=== PATIENT | male | born 1955 | race Caucasian/White ===

== ENCOUNTER 2016-12-15 09:06 | Inpatient (IN) | payer MEDICAID, OTHER ==
[~2016-12-15] VITALS: Ht 172.7 cm; Wt 78.9 kg
[2016-12-15] MEDS ORDERED: ONDANSETRON HCL/PF 4 MG/2 ML VIAL ONE (09:28)
[2016-12-15] MEDS ORDERED: ONDANSETRON HCL/PF 4 MG/2 ML VIAL IVP ONE (09:30)
[2016-12-15] MEDS ORDERED: ACETAMINOPHEN ES 500 MG TABLET ONE (09:32)
[2016-12-15 09:51] LABS: BASOPHILS % (AUTO) 0.9 % (0.0-2.0); DIFF TOTAL % 100 %; EOSINOPHILS # (AUTO) 0.1 /CMM (0.0-0.7); EOSINOPHILS % (AUTO) 1.6 % (0.0-6.0); HEMATOCRIT 44 % (39-51); HEMOGLOBIN 14.8 g/dL (13.5-17.5); LYMPHOCYTES # (AUTO) 0.8 /CMM (0.8-4.8); LYMPHOCYTES % (AUTO) 24.8 % (20.0-44.0); MEAN CORPUSCULAR HEMOGLOBIN 34 PG (26.0-33.0); MEAN CORPUSCULAR HGB CONC 33 g/dl (31.0-36.0); MEAN CORPUSCULAR VOLUME 103 fL (80-96); MONOCYTES # (AUTO) 0.4 /CMM (0.1-1.30); MONOCYTES % (AUTO) 10.9 % (2.0-12.0); NEUTROPHILS % (AUTO) 61.8 % (43.0-81.0); PLATELET COUNT (AUTO) 79 /CMM (150-450); RED BLOOD CELL COUNT(AUTO) 4.29 MIL/uL (4.5-6.0); WHITE BLOOD COUNT (AUTO) 3.3 K/uL (4.3-11.0)
[2016-12-15] MEDS ORDERED: ACETAMINOPHEN ES 500 MG TABLET PO ONE (10:00)
[2016-12-15 10:03] LABS: ANION GAP 17 (5-14); CALCIUM, SERUM 9.7 mg/dL (8.5-10.1); CARBON DIOXIDE 26 mmol/L (21-32); CHLORIDE 96 mmol/L (98-107); CREATININE 0.7 mg/dL (0.6-1.3); GFR 114 mL/min (>60); GLUCOSE 97 mg/dL (74-106); POTASSIUM 3.8 mmol/L (3.5-5.1); SODIUM SERUM 135 mmol/L (136-145); UREA NITROGEN, BLOOD 18 mg/dL (7-18)
[2016-12-15 10:09] LABS: ALANINE AMINOTRANSFERASE 50 U/L (12-78); ALBUMIN 3.9 g/dL (3.4-5.0); ASPARTATE AMINOTRANSFERASE 83 U/L (15-37); BILIRUBIN,DIRECT 0.4 mg/dL (0.0-0.2); BILIRUBIN,TOTAL 1.5 mg/dL (0.2-1.0); INDIRECT BILIRUBIN 1.1 mg/dL (0.0-1.1); TOTAL PROTEIN, SERUM 7.9 g/dL (6.4-8.2)
[2016-12-15 10:11] LABS: TROPONIN I < 0.017 ng/mL (0.00-0.056)
[2016-12-15 10:15] LABS: LACTIC ACID 1.1 mmol/L (0.4-2.0)
[2016-12-15 10:21] LABS: PROTHROMBIN TIME 10.5 SECS (9.5-12.7)
[2016-12-15 10:22] LABS: BAND % (MANUAL) 3 % (0.0-5.0); EOSINOPHILS % (MANUAL) 2 % (0-4); LYMPHOCYTES % (MANUAL) 26 % (16-48); PLATELET ESTIMATE DECREASED
[2016-12-15] MEDS ORDERED: ENOXAPARIN SODIUM 40 MG/0.4 ML DISP.SYRIN SQ SCH (11:00)
[2016-12-15] MEDS ORDERED: MAG HYDROX/AL HYDROX/SIMETH 30 ML UDC PO PRN (11:00)
[2016-12-15] MEDS ORDERED: ACETAMINOPHEN 325 MG TABLET PO PRN (11:00)
[2016-12-15] MEDS ORDERED: ASPIRIN 325 MG TABLET PO ONE (11:00)
[2016-12-15 11:27] LABS: THYROID STIMULATING HORMONE 1.444 uIU/mL (0.358-3.74)
[2016-12-15 12:15] VITALS: BP 125/72
[2016-12-15 16:00] VITALS: BP 122/74
[2016-12-15 16:28] LABS: CANNABINOID, URINE NEGATIVE (NEGATIVE); PHENCYCLIDINE SCREEN,URINE NEGATIVE (NEGATIVE)
[2016-12-15 16:36] LABS: KETONES,URINE 1+ (NEGATIVE); LEUKOCYTE ESTERASE ,URINE NEGATIVE (NEGATIVE)
[2016-12-15 16:45] LABS: ADD UA MICROSCOPIC YES
[2016-12-15 17:06] LABS: ADD URINE CULTURE YES; MUCUS,URINE Moderate /LPF (None Seen); RBC,URINE NONE SEEN /HPF (0-2); WBC,URINE NONE SEEN /HPF (0-3)
[2016-12-15] MEDS ORDERED: TEMAZEPAM 15 MG CAPSULE PO PRN (19:30)
[2016-12-15] MEDS: HYDROCODONE/APAP 5/325MG 1 EACH TABLET PO PRN (19:49)
[2016-12-15 20:11] VITALS: BP 128/69
[2016-12-16] MEDS: HYDROCODONE/APAP 5/325MG 1 EACH TABLET PO PRN ×4 (00:06→19:15)
[2016-12-16 00:16] VITALS: BP 129/73
[2016-12-16 07:08] LABS: ANION GAP 14 (5-14); CALCIUM, SERUM 9.2 mg/dL (8.5-10.1); CARBON DIOXIDE 26 mmol/L (21-32); CHLORIDE 100 mmol/L (98-107); CREATININE 0.7 mg/dL (0.6-1.3); GFR 114 mL/min (>60); GLUCOSE 110 mg/dL (74-106); POTASSIUM 3.9 mmol/L (3.5-5.1); SODIUM SERUM 136 mmol/L (136-145); UREA NITROGEN, BLOOD 19 mg/dL (7-18)
[2016-12-16 07:10] LABS: CHOLESTEROL 182 mg/dL (<200); HDL CHOLESTEROL 108 mg/dL (40-60); LDL 56 mg/dL (0-99); TRIGLYCERIDES 68 mg/dL (30-150)
[2016-12-16 07:12] LABS: INR 0.98 (0.87-1.13); PROTHROMBIN TIME 10.6 SECS (9.5-12.7)
[2016-12-16 07:13] LABS: TROPONIN I < 0.017 ng/mL (0.00-0.056)
[2016-12-16 08:00] VITALS: BP 129/63
[2016-12-16 08:39] LABS: BASOPHILS % (AUTO) 1.1 % (0.0-2.0); EOSINOPHILS % (AUTO) 3.6 % (0.0-6.0); HEMATOCRIT 39 % (39-51); HEMOGLOBIN 13.6 g/dL (13.5-17.5); LYMPHOCYTES % (AUTO) 49.2 % (20.0-44.0); MEAN CORPUSCULAR HEMOGLOBIN 39 PG (26.0-33.0); MEAN CORPUSCULAR HGB CONC 35 g/dl (31.0-36.0); MEAN CORPUSCULAR VOLUME 110 fL (80-96); MONOCYTES % (AUTO) 10.3 % (2.0-12.0); NEUTROPHILS % (AUTO) 35.8 % (43.0-81.0); PLATELET COUNT (AUTO) 69 /CMM (150-450); RED BLOOD CELL COUNT(AUTO) 3.52 MIL/uL (4.5-6.0)
[2016-12-16 08:40] LABS: DIFF TOTAL % 100 %; EOSINOPHILS # (AUTO) 0.1 /CMM (0.0-0.7); LYMPHOCYTES # (AUTO) 1.5 /CMM (0.8-4.8); MONOCYTES # (AUTO) 0.3 /CMM (0.1-1.30); NEUTROPHILS # (AUTO) 1.1 /CMM (1.8-8.9)
[2016-12-16] MEDS: DOCUSATE SODIUM 100 MG CAPSULE PO SCH (10:13)
[2016-12-16] MEDS: ASPIRIN EC 325 MG TABLET.DR PO SCH (10:13)
[2016-12-16 12:00] VITALS: BP 115/70
[2016-12-16 12:45] LABS: EOSINOPHILS % (MANUAL) 5 % (0-4); LYMPHOCYTES % (MANUAL) 52 % (16-48); PLATELET ESTIMATE DECREASED
[2016-12-16 16:00] VITALS: BP 108/71
[2016-12-16 20:24] VITALS: BP 99/63
[2016-12-17] MEDS: HYDROCODONE/APAP 5/325MG 1 EACH TABLET PO PRN ×2 (00:33→08:37)
[2016-12-17 08:00] VITALS: BP 102/68
[2016-12-17] MEDS: ASPIRIN EC 325 MG TABLET.DR PO SCH (08:37)
[2016-12-17] MEDS: DOCUSATE SODIUM 100 MG CAPSULE PO SCH (08:37)
== END 2016-12-17 13:45 | disposition home health service (06) | DRG 48 ==
LOC: ER 09:08 → TELE 11:39 → MED 12-16 11:37
PROVIDERS: ADMIT Internal Medicine; ATTEND Internal Medicine
DX: G62.9 Polyneuropathy, unspecified (principal); F03.90 Unspecified dementia, unspecified severity, without behavioral disturbance, psychotic disturbance, mood disturbance, and anxiety; E87.1 Hypo-osmolality and hyponatremia; E86.1 Hypovolemia; I69.351 Hemiplegia and hemiparesis following cerebral infarction affecting right dominant side; F41.9 Anxiety disorder, unspecified; I25.10 Atherosclerotic heart disease of native coronary artery without angina pectoris; I25.2 Old myocardial infarction; D64.9 Anemia, unspecified; F17.210 Nicotine dependence, cigarettes, uncomplicated; I10 Essential (primary) hypertension
CPT/HCPCS: 36415; 70450-TC; 70551-TC; 71010-TC; 72131-TC; 80048-TC; 80061-TC; 80076-TC; 80305; 81000-TC; 82140-TC; 83605-TC; 83880; 84443-TC; 84484-TC; 85025-TC; 85652-TC; 85730-TC; 87081-TC; 87086-TC; 92611-TC; 93307-TC; 97001-TC; 97003-TC; 97116-TC; 97530-TC; A4606; J2405; Z7610

== ENCOUNTER 2017-01-27 18:40 | Emergency (ER) | payer OTHER ==
[~2017-01-27] VITALS: Ht 182.9 cm; Wt 77.1 kg
[2017-01-27 19:53] LABS: DIFF TOTAL % 100 %; EOSINOPHILS # (AUTO) 0.1 /CMM (0.0-0.7); EOSINOPHILS % (AUTO) 3.2 % (0.0-6.0); HEMATOCRIT 41 % (39-51); HEMOGLOBIN 14.4 g/dL (13.5-17.5); LYMPHOCYTES # (AUTO) 1.9 /CMM (0.8-4.8); LYMPHOCYTES % (AUTO) 50.6 % (20.0-44.0); MEAN CORPUSCULAR HEMOGLOBIN 37 PG (26.0-33.0); MEAN CORPUSCULAR HGB CONC 35 g/dl (31.0-36.0); MEAN CORPUSCULAR VOLUME 105 fL (80-96); MONOCYTES # (AUTO) 0.3 /CMM (0.1-1.30); MONOCYTES % (AUTO) 9.4 % (2.0-12.0); NEUTROPHILS # (AUTO) 1.3 /CMM (1.8-8.9); NEUTROPHILS % (AUTO) 35.8 % (43.0-81.0); PLATELET COUNT (AUTO) 58 /CMM (150-450); RED BLOOD CELL COUNT(AUTO) 3.93 MIL/uL (4.5-6.0); WHITE BLOOD COUNT (AUTO) 3.6 K/uL (4.3-11.0)
[2017-01-27] MEDS ORDERED: BACLOFEN (10 MG) 10 MG TABLET ONE (19:54)
[2017-01-27 19:56] LABS: CREATININE 0.8 mg/dL (0.6-1.3)
[2017-01-27 19:59] LABS: INR 0.9 (0.87-1.13); PROTHROMBIN TIME 9.4 SECS (9.5-12.7)
[2017-01-27] MEDS ORDERED: BACLOFEN (10 MG) 10 MG TABLET PO ONE (20:00)
[2017-01-27 20:01] LABS: ALBUMIN 3.9 g/dL (3.4-5.0); BILIRUBIN,DIRECT 0.3 mg/dL (0.0-0.2); BILIRUBIN,TOTAL 0.6 mg/dL (0.2-1.0); CALCIUM, SERUM 8.5 mg/dL (8.5-10.1); INDIRECT BILIRUBIN 0.3 mg/dL (0.0-1.1); TOTAL PROTEIN, SERUM 7.8 g/dL (6.4-8.2)
[2017-01-27 20:03] LABS: CANNABINOID, URINE NEGATIVE (NEGATIVE); PHENCYCLIDINE SCREEN,URINE NEGATIVE (NEGATIVE)
[2017-01-27 20:56] LABS: ANISOCYTOSIS 1+; EOSINOPHILS % (MANUAL) 2 % (0-4); LYMPHOCYTES % (MANUAL) 52 % (16-48); PLATELET ESTIMATE DECREASED
[2017-01-27 21:07] VITALS: BP 124/61
== END 2017-01-27 21:08 | disposition home or self-care (01) ==
LOC: ER 18:45
DX: R06.6 Hiccough (principal); F10.10 Alcohol abuse, uncomplicated; I25.2 Old myocardial infarction; I25.10 Atherosclerotic heart disease of native coronary artery without angina pectoris; F17.210 Nicotine dependence, cigarettes, uncomplicated; R79.1 Abnormal coagulation profile; Z86.73 Personal history of transient ischemic attack (TIA), and cerebral infarction without residual deficits
CPT/HCPCS: 36415; 71010; 80048; 80076; 80305; 83690; 85025; 85730; 99285; A4606; G0480; Z7610

== ENCOUNTER 2017-02-03 22:31 | Inpatient (IN) | payer OTHER ==
[~2017-02-03] VITALS: Ht 182.9 cm; Wt 77.1 kg
[2017-02-03] MEDS ORDERED: IV NS 0.9% 1,000 ML BAG IV ONE (23:00)
[2017-02-03] MEDS ORDERED: ONDANSETRON HCL/PF 4 MG/2 ML VIAL IVP ONE (23:00)
[2017-02-03] MEDS ORDERED: IV NS 0.9% 1,000 ML ONE (23:06)
[2017-02-03] MEDS ORDERED: ONDANSETRON HCL/PF 4 MG/2 ML VIAL ONE (23:06)
[2017-02-03 23:12] LABS: BASOPHILS % (AUTO) 0.2 % (0.0-2.0); EOSINOPHILS # (AUTO) 0.1 /CMM (0.0-0.7); EOSINOPHILS % (AUTO) 1.3 % (0.0-6.0); HEMATOCRIT 40 % (39-51); HEMOGLOBIN 13.9 g/dL (13.5-17.5); LYMPHOCYTES % (AUTO) 21.9 % (20.0-44.0); MEAN CORPUSCULAR HEMOGLOBIN 35 PG (26.0-33.0); MEAN CORPUSCULAR HGB CONC 35 g/dl (31.0-36.0); MEAN CORPUSCULAR VOLUME 100 fL (80-96); MONOCYTES # (AUTO) 0.5 /CMM (0.1-1.30); MONOCYTES % (AUTO) 10.8 % (2.0-12.0); NEUTROPHILS # (AUTO) 2.9 /CMM (1.8-8.9); NEUTROPHILS % (AUTO) 65.8 % (43.0-81.0); PLATELET COUNT (AUTO) 60 /CMM (150-450); RDW COEFFICIENT OF VARIATION 13.8 (11.5-15.0); RED BLOOD CELL COUNT(AUTO) 3.96 MIL/uL (4.5-6.0); WHITE BLOOD COUNT (AUTO) 4.4 K/uL (4.3-11.0)
[2017-02-03 23:24] LABS: CALCIUM, SERUM 9.3 mg/dL (8.5-10.1); CREATININE 0.8 mg/dL (0.6-1.3); POTASSIUM 4.2 mmol/L (3.5-5.1)
[2017-02-03 23:30] LABS: ALBUMIN 3.9 g/dL (3.4-5.0); BILIRUBIN,DIRECT 0.6 mg/dL (0.0-0.2); BILIRUBIN,TOTAL 1.7 mg/dL (0.2-1.0); TOTAL PROTEIN, SERUM 7.7 g/dL (6.4-8.2)
[2017-02-03 23:32] LABS: LACTIC ACID 1.2 mmol/L (0.4-2.0); TROPONIN I 0.045 ng/mL (0.00-0.056)
[2017-02-03 23:35] LABS: INR 0.95 (0.87-1.13); PROTHROMBIN TIME 10.1 SECS (9.5-12.7)
[2017-02-03] MEDS ORDERED: MORPHINE SULFATE INJ 2 MG/ML DISP.SYRIN ONE (23:46)
[2017-02-03 23:49] LABS: APPEARANCE,URINE CLEAR (CLEAR); BILIRUBIN,URINE 2+ (NEGATIVE); BLOOD, URINE TRACE-INTA Ery/uL (NEGATIVE); COLOR,URINE DARK YELLOW (YELLOW); KETONES,URINE 3+ (NEGATIVE); LEUKOCYTE ESTERASE ,URINE NEGATIVE (NEGATIVE); NITRITE, URINE NEGATIVE (NEGATIVE); PROTEIN,URINE 1+ mg/dl (NEGATIVE); UGLUCOSE NEGATIVE (NEGATIVE)
[2017-02-03 23:56] LABS: ADD URINE CULTURE NO; BACTERIA,URINE None seen /HPF (None Seen); RBC,URINE 0-2 /HPF (0-2); WBC,URINE 0-2 /HPF (0-3)
[2017-02-03 23:57] LABS: HYALINE CASTS, URINE Rare /LPF (None Seen); MUCUS,URINE Rare /LPF (None Seen); SQUAMOUS EPITHELIAL CELL,UR Rare /HPF (None Seen)
[2017-02-04] VITALS (7 sets, daily range): BP systolic 111–145; BP diastolic 69–83
[2017-02-04] MEDS ORDERED: MORPHINE SULFATE INJ 2 MG/ML DISP.SYRIN IV PRN
[2017-02-04] MEDS ORDERED: FOLI1TAB16 PO (00:21)
[2017-02-04] MEDS ORDERED: ASPI-605 PO (00:21)
[2017-02-04] MEDS ORDERED: MULT1CAP34 PO (00:21)
[2017-02-04 00:28] LABS: BAND % (MANUAL) 1 % (0.0-5.0); LYMPHOCYTES % (MANUAL) 28 % (16-48); MONOCYTES % (MANUAL) 7 % (0-11.0); NEUTROPHILS % (MANUAL) 64 (42-76); PLATELET ESTIMATE DECREASED
[2017-02-04] MEDS ORDERED: MECLIZINE HCL 25 MG TABLET PO SCH (01:30)
[2017-02-04] MEDS ORDERED: ENOXAPARIN SODIUM 40 MG/0.4 ML DISP.SYRIN SQ ONE (01:53)
[2017-02-04] MEDS ORDERED: IV SET PRIMARY PUMP SET 1 EA INFUS.SET MC ONE (01:59)
[2017-02-04] MEDS ORDERED: IV NS 0.9% 1,000 ML ONE (01:59)
[2017-02-04] MEDS ORDERED: ONDANSETRON HCL/PF 4 MG/2 ML VIAL IVP PRN (02:00)
[2017-02-04] MEDS ORDERED: MAG HYDROX/AL HYDROX/SIMETH 30 ML UDC PO PRN (02:00)
[2017-02-04] MEDS ORDERED: ENOXAPARIN SODIUM 40 MG/0.4 ML DISP.SYRIN SQ SCH ×2 (02:00→21:00)
[2017-02-04] MEDS ORDERED: ZOLPIDEM TARTRATE 5 MG TABLET PO PRN (02:00)
[2017-02-04] MEDS ORDERED: HYDROCODONE/APAP 5/325MG 1 EACH TABLET PO PRN (02:00)
[2017-02-04] MEDS ORDERED: MAGNESIUM HYDROXIDE 30 ML UDC PO PRN (02:00)
[2017-02-04] MEDS ORDERED: Z GUARD REMEDY 2 OZ OINT TP PRN (02:00)
[2017-02-04] MEDS ORDERED: ACETAMINOPHEN 325 MG TABLET PO PRN (02:00)
[2017-02-04] MEDS: IV NS 0.9% 1,000 ML IV PRN (02:05)
[2017-02-04] MEDS ORDERED: HYDROCODONE/APAP 5/325MG 1 EACH TABLET ONE (03:55)
[2017-02-04] MEDS: MULTIVITAMINS,THERAPEUTIC 1 UDTAB TABLET PO SCH (08:17)
[2017-02-04] MEDS: FOLIC ACID 1 MG TABLET PO SCH (08:17)
[2017-02-04] MEDS: PANTOPRAZOLE 40 MG TABLET.DR PO SCH (08:17)
[2017-02-04] MEDS ORDERED: ASPIRIN EC 81 MG TABLET.DR PO SCH (09:00)
[2017-02-04 11:42] LABS: CALCIUM, SERUM 8.4 mg/dL (8.5-10.1); CREATININE 0.8 mg/dL (0.6-1.3); POTASSIUM 4.1 mmol/L (3.5-5.1)
[2017-02-04 11:48] LABS: ALBUMIN 3.2 g/dL (3.4-5.0); BILIRUBIN,DIRECT 0.4 mg/dL (0.0-0.2); TOTAL PROTEIN, SERUM 6.6 g/dL (6.4-8.2)
[2017-02-04 11:50] LABS: LACTIC ACID 0.9 mmol/L (0.4-2.0)
[2017-02-04] MEDS: MORPHINE SULFATE INJ 2 MG/ML DISP.SYRIN IM PRN ×3 (15:29→22:50)
[2017-02-04] MEDS: MUPIROCIN OINT 2% 22 GM TUBE SCH (21:44)
[2017-02-05] VITALS (8 sets, daily range): BP systolic 90–146; BP diastolic 59–82
[2017-02-05] MEDS: MORPHINE SULFATE INJ 2 MG/ML DISP.SYRIN IM PRN ×5 (02:52→20:00)
[2017-02-05] MEDS: IV NS 0.9% 1,000 ML IV PRN (02:54)
[2017-02-05 07:25] LABS: BILIRUBIN,DIRECT 0.3 mg/dL (0.0-0.2); BILIRUBIN,TOTAL 0.9 mg/dL (0.2-1.0); CALCIUM, SERUM 8.8 mg/dL (8.5-10.1); CREATININE 0.7 mg/dL (0.6-1.3); MAGNESIUM 1.8 mg/dL (1.8-2.4); PHOSPHORUS 3.4 mg/dL (2.5-4.9); TOTAL PROTEIN, SERUM 6.3 g/dL (6.4-8.2)
[2017-02-05 08:00] LABS: BASOPHILS % (AUTO) 0.8 % (0.0-2.0); EOSINOPHILS # (AUTO) 0.1 /CMM (0.0-0.7); HEMATOCRIT 36 % (39-51); HEMOGLOBIN 12.2 g/dL (13.5-17.5); LYMPHOCYTES % (AUTO) 36.9 % (20.0-44.0); MEAN CORPUSCULAR HEMOGLOBIN 34 PG (26.0-33.0); MEAN CORPUSCULAR HGB CONC 34 g/dl (31.0-36.0); MEAN CORPUSCULAR VOLUME 100 fL (80-96); MONOCYTES # (AUTO) 0.4 /CMM (0.1-1.30); MONOCYTES % (AUTO) 13.6 % (2.0-12.0); NEUTROPHILS # (AUTO) 1.2 /CMM (1.8-8.9); NEUTROPHILS % (AUTO) 43.7 % (43.0-81.0); RDW COEFFICIENT OF VARIATION 14.3 (11.5-15.0); RED BLOOD CELL COUNT(AUTO) 3.56 MIL/uL (4.5-6.0); WHITE BLOOD COUNT (AUTO) 2.8 K/uL (4.3-11.0)
[2017-02-05 08:04] LABS: PLATELET COUNT (AUTO) 50 /CMM (150-450)
[2017-02-05] MEDS: PANTOPRAZOLE 40 MG TABLET.DR PO SCH (08:20)
[2017-02-05] MEDS: FOLIC ACID 1 MG TABLET PO SCH (08:32)
[2017-02-05] MEDS: MULTIVITAMINS,THERAPEUTIC 1 UDTAB TABLET PO SCH (08:32)
[2017-02-05 08:46] LABS: EOSINOPHILS % (MANUAL) 4 % (0-4); LYMPHOCYTES % (MANUAL) 46 % (16-48); MONOCYTES % (MANUAL) 13 % (0-11.0); NEUTROPHILS % (MANUAL) 37 (42-76)
[2017-02-05 08:47] LABS: PLATELET ESTIMATE DECREASED
[2017-02-05 08:48] LABS: ANISOCYTOSIS 1+
[2017-02-05] MEDS: MUPIROCIN OINT 2% 22 GM TUBE SCH ×2 (09:00→20:02)
[2017-02-06] MEDS: IV NS 0.9% 1,000 ML IV PRN (00:01)
[2017-02-06] MEDS: MORPHINE SULFATE INJ 2 MG/ML DISP.SYRIN IM PRN ×4 (04:14→17:08)
[2017-02-06 05:46] VITALS: BP 131/76
[2017-02-06 05:47] VITALS: BP_SYST 103; BP_SYST 126; BP_DIAS 73; BP_DIAS 77
[2017-02-06 07:58] LABS: CREATININE 0.6 mg/dL (0.6-1.3); MAGNESIUM 1.8 mg/dL (1.8-2.4); PHOSPHORUS 4.2 mg/dL (2.5-4.9); POTASSIUM 5.1 mmol/L (3.5-5.1)
[2017-02-06] MEDS: FOLIC ACID 1 MG TABLET PO SCH (08:09)
[2017-02-06] MEDS: MULTIVITAMINS,THERAPEUTIC 1 UDTAB TABLET PO SCH (08:09)
[2017-02-06] MEDS: MUPIROCIN OINT 2% 22 GM TUBE SCH (08:10)
[2017-02-06] MEDS: PANTOPRAZOLE 40 MG TABLET.DR PO SCH (08:10)
[2017-02-06 08:21] LABS: BASOPHILS % (AUTO) 0.8 % (0.0-2.0); EOSINOPHILS # (AUTO) 0.1 /CMM (0.0-0.7); EOSINOPHILS % (AUTO) 4.6 % (0.0-6.0); HEMATOCRIT 36 % (39-51); HEMOGLOBIN 12.4 g/dL (13.5-17.5); LYMPHOCYTES # (AUTO) 0.9 /CMM (0.8-4.8); LYMPHOCYTES % (AUTO) 35.4 % (20.0-44.0); MEAN CORPUSCULAR HEMOGLOBIN 35 PG (26.0-33.0); MEAN CORPUSCULAR HGB CONC 35 g/dl (31.0-36.0); MEAN CORPUSCULAR VOLUME 100 fL (80-96); MONOCYTES # (AUTO) 0.4 /CMM (0.1-1.30); MONOCYTES % (AUTO) 15.6 % (2.0-12.0); NEUTROPHILS # (AUTO) 1.2 /CMM (1.8-8.9); NEUTROPHILS % (AUTO) 43.6 % (43.0-81.0); PLATELET COUNT (AUTO) 61 /CMM (150-450); RDW COEFFICIENT OF VARIATION 14.3 (11.5-15.0); RED BLOOD CELL COUNT(AUTO) 3.59 MIL/uL (4.5-6.0); WHITE BLOOD COUNT (AUTO) 2.7 K/uL (4.3-11.0)
[2017-02-06] MEDS ORDERED: NEOMY SULF/BACITRAC ZN/POLY 15 GM TUBE TP SCH (09:00)
[2017-02-06 09:04] LABS: EOSINOPHILS % (MANUAL) 7 % (0-4); LYMPHOCYTES % (MANUAL) 36 % (16-48); MONOCYTES % (MANUAL) 11 % (0-11.0); NEUTROPHILS % (MANUAL) 46 (42-76)
[2017-02-06 09:05] LABS: ANISOCYTOSIS 1+; PLATELET ESTIMATE DECREASED
[2017-02-06 16:00] VITALS: BP 115/70
[2017-02-06] MEDS ORDERED: MECLIZINE HCL 25 MG TABLET PO SCH (17:00)
[2017-02-07] MEDS ORDERED: ASPIRIN 81 MG TAB.CHEW PO SCH (09:00)
== END 2017-02-06 18:48 | disposition home or self-care (01) | DRG 48 ==
LOC: ER 22:34 → TELE 23:29 → MED 02-05 08:56
PROVIDERS: ADMIT Internal Medicine; ATTEND Internal Medicine
DX: G90.8 Other disorders of autonomic nervous system (principal); D61.818 Other pancytopenia; E87.2 Acidosis; E44.0 Moderate protein-calorie malnutrition; D69.6 Thrombocytopenia, unspecified; E87.1 Hypo-osmolality and hyponatremia; K76.0 Fatty (change of) liver, not elsewhere classified; F03.90 Unspecified dementia, unspecified severity, without behavioral disturbance, psychotic disturbance, mood disturbance, and anxiety; R42 Dizziness and giddiness; I25.2 Old myocardial infarction; R29.6 Repeated falls; K40.90 Unilateral inguinal hernia, without obstruction or gangrene, not specified as recurrent; F41.9 Anxiety disorder, unspecified; M48.06 Spinal stenosis, lumbar region; I70.0 Atherosclerosis of aorta; Z86.73 Personal history of transient ischemic attack (TIA), and cerebral infarction without residual deficits; F17.210 Nicotine dependence, cigarettes, uncomplicated; D53.9 Nutritional anemia, unspecified
CPT/HCPCS: 36415; 70450-TC; 71010-TC; 76700-TC; 78226; 80048-TC; 80053-TC; 80061-TC; 80076-TC; 81000-TC; 82962-TC; 83605-TC; 83735-TC; 83935-TC; 84100-TC; 84484-TC; 85025-TC; 85730-TC; 87040-TC; 87081-TC; 93307-TC; 97001-TC; 97116-TC; 97530-TC; A4606; A6402; A9537; G0480; J1650; J2270; J2405; J7030; J8597; Z7610

== ENCOUNTER 2017-03-03 06:04 | Inpatient (IN) | payer MEDICAID, OTHER ==
[~2017-03-03] VITALS: Ht 177.8 cm; Wt 74.8 kg
[~2017-03-03 06:04] MED LIST: ASPI-605 PO; FOLI1TAB16 PO; MULT1CAP34 PO
--- NOTE | 2017-03-03 06:15 | NUR ---
PT BIBRA FOR "N/V SINCE 1999 LAST NIGHT" PT AOX3 RR EVEN AND UNLABORED. NO SOB NOTED. NAD NOTED. NO NVD AT THIS TIME. PT GOWNED AND PLACED ON MONITOR. WAITING FOR MD PAREDES.
--- NOTE | 2017-03-03 06:20 | NUR ---
DR. LONG AT BEDSIDE FOR EVAL.
[2017-03-03] MEDS ORDERED: PROCHLORPERAZINE EDISYLATE 10 MG/2 ML VIAL ONE (06:24)
[2017-03-03] MEDS ORDERED: IV SET PRIMARY 1 EA INFUS.SET MC ONE ×2 (06:25→08:19)
[2017-03-03] MEDS ORDERED: IV NS 0.9% 1,000 ML ONE (06:25)
--- NOTE | 2017-03-03 06:25 | NUR ---
XRAY AT BEDSIDE
[2017-03-03] MEDS ORDERED: PROCHLORPERAZINE EDISYLATE 10 MG/2 ML VIAL IV ONE (06:30)
[2017-03-03] MEDS ORDERED: IV NS 0.9% 1,000 ML BAG IV ONE (06:30)
[2017-03-03 06:35] LABS: BASOPHILS % (AUTO) 0.4 % (0.0-2.0); HEMATOCRIT 46 % (39-51); HEMOGLOBIN 16.1 g/dL (13.5-17.5); LYMPHOCYTES # (AUTO) 0.5 /CMM (0.8-4.8); LYMPHOCYTES % (AUTO) 6.4 % (20.0-44.0); MEAN CORPUSCULAR HEMOGLOBIN 36 PG (26.0-33.0); MEAN CORPUSCULAR HGB CONC 35 g/dl (31.0-36.0); MEAN CORPUSCULAR VOLUME 104 fL (80-96); MONOCYTES # (AUTO) 0.5 /CMM (0.1-1.30); MONOCYTES % (AUTO) 6.6 % (2.0-12.0); NEUTROPHILS # (AUTO) 6.3 /CMM (1.8-8.9); NEUTROPHILS % (AUTO) 86.6 % (43.0-81.0); PLATELET COUNT (AUTO) 97 /CMM (150-450); RED BLOOD CELL COUNT(AUTO) 4.48 MIL/uL (4.5-6.0); WHITE BLOOD COUNT (AUTO) 7.3 K/uL (4.3-11.0)
[2017-03-03 06:47] LABS: CHLORIDE 91 mmol/L (98-107); CREATININE 1.3 mg/dL (0.6-1.3); GFR 56 mL/min (>60); GLUCOSE 128 mg/dL (74-106); POTASSIUM 3.7 mmol/L (3.5-5.1); SODIUM SERUM 137 mmol/L (136-145); UREA NITROGEN, BLOOD 14 mg/dL (7-18)
[2017-03-03 06:53] LABS: ALBUMIN 4.7 g/dL (3.4-5.0); TOTAL PROTEIN, SERUM 9.1 g/dL (6.4-8.2)
[2017-03-03 06:55] LABS: CARBON DIOXIDE 10 mmol/L (21-32); TROPONIN I < 0.017 ng/mL (0.00-0.056)
--- NOTE | 2017-03-03 06:59 | NUR ---
URINE COLLECTED. CALLED LAB FOR METAL DRILL PRESS OPERATOR.
--- NOTE | 2017-03-03 07:10 | NUR ---
REPORT GIVEN TO YULY HODGSON FOR RICARDO.
[2017-03-03] MEDS ORDERED: IV LR 1000 ML 1,000 ML IV ONE (07:30)
[2017-03-03] MEDS ORDERED: FAMOTIDINE/PF INJ 20 MG/2 ML VIAL IV ONE ×2 (07:30→07:48)
[2017-03-03] MEDS ORDERED: MAG HYDROX/AL HYDROX/SIMETH 30 ML UDC PO ONE (07:30)
[2017-03-03 07:33] LABS: ACETONE, SERUM TRACE (NEGATIVE)
[2017-03-03 07:38] LABS: APPEARANCE,URINE SL CLOUDY (CLEAR); BILIRUBIN,URINE 1+ (NEGATIVE); BLOOD, URINE NEGATIVE Ery/uL (NEGATIVE); COLOR,URINE YELLOW (YELLOW); KETONES,URINE 3+ (NEGATIVE); LEUKOCYTE ESTERASE ,URINE NEGATIVE (NEGATIVE); NITRITE, URINE NEGATIVE (NEGATIVE); PROTEIN,URINE TRACE mg/dl (NEGATIVE); UGLUCOSE NEGATIVE (NEGATIVE)
[2017-03-03 07:43] LABS: ADD URINE CULTURE NO; BACTERIA,URINE None seen /HPF (None Seen); MUCUS,URINE Few /LPF (None Seen); RBC,URINE 0-2 /HPF (0-2); SQUAMOUS EPITHELIAL CELL,UR 0-2 /HPF (None Seen); URINE AMORPHOUS URATE Few /HPF (None Seen); WBC,URINE 0-2 /HPF (0-3)
[2017-03-03] MEDS ORDERED: MAG HYDROX/AL HYDROX/SIMETH 30 ML UDC ONE (07:48)
[2017-03-03] MEDS ORDERED: IV LR 1000 ML 1,000 ML ONE (07:48)
[2017-03-03] MEDS ORDERED: IV D5/0.45 NACL 1,000 ML IV ONE ×2 (07:50→08:19)
--- NOTE | 2017-03-03 07:51 | NUR ---
PAGED DR. HEARD FOR ADMISSION
[2017-03-03 07:53] LABS: CANNABINOID, URINE NEGATIVE (NEGATIVE); PHENCYCLIDINE SCREEN,URINE NEGATIVE (NEGATIVE)
[2017-03-03] MEDS ORDERED: Thiamine 100 MG in IV D5W 50 ML IV SCH (08:00)
[2017-03-03 08:05] LABS: LACTIC ACID 7.2 mmol/L (0.4-2.0)
[2017-03-03] MEDS ORDERED: IV NS 0.9% 1,000 ML IV PRN (08:11)
[2017-03-03 08:18] LABS: OSMOLALITY,SERUM 326 mOS/kg (278-305)
[2017-03-03 08:20] LABS: BAND % (MANUAL) 5 % (0.0-5.0); LYMPHOCYTES % (MANUAL) 7 % (16-48); MONOCYTES % (MANUAL) 7 % (0-11.0); NEUTROPHILS % (MANUAL) 81 (42-76); PLATELET ESTIMATE DECREASED
[2017-03-03 08:21] LABS: ANISOCYTOSIS 1+
[2017-03-03 08:22] LABS: OSMOLALITY,URINE 726 mOS/kg (340-1090)
[2017-03-03] MEDS ORDERED: ZOLPIDEM TARTRATE 5 MG TABLET PO PRN (08:30)
[2017-03-03] MEDS ORDERED: MAGNESIUM HYDROXIDE 30 ML UDC PO PRN (08:30)
[2017-03-03] MEDS ORDERED: LORAZEPAM 1 MG TABLET PO PRN (08:30)
[2017-03-03] MEDS ORDERED: ACETAMINOPHEN 325 MG TABLET PO PRN (08:30)
[2017-03-03] MEDS ORDERED: Z GUARD REMEDY 2 OZ OINT TP PRN (08:30)
[2017-03-03] MEDS ORDERED: MAG HYDROX/AL HYDROX/SIMETH 30 ML UDC PO PRN (08:30)
[2017-03-03 08:44] LABS: MAGNESIUM 1.9 mg/dL (1.8-2.4); PHOSPHORUS 5.5 mg/dL (2.5-4.9)
--- NOTE | 2017-03-03 10:17 | NUR ---
PATIENT TRANSPORTED TO [address] [place] [address]
--- NOTE | 2017-03-03 10:27 | NUR ---
COMMUNITY SERVICE SPECIALIST NOTES RECEIVED PATIENT ON FLOOR IN STABLE CONDITION, COMPLAINING OF 7/10 PAIN, ADMINISTERED PAIN MEDICATION AND VITAMINS ORDERED. ORDERED TRAY, COMPLETED ADMISSION. WILL CONTINUE TO MONITOR AND FOLLOW UP WITH PAIN MEDS.
[2017-03-03] MEDS: FOLIC ACID 1 MG TABLET PO SCH (10:46)
[2017-03-03] MEDS: MULTIVITAMINS W-MINERALS 1 TAB TABLET PO SCH (10:46)
[2017-03-03] MEDS: HYDROCODONE/APAP 5/325MG 1 EACH TABLET PO PRN ×3 (10:46→21:10)
[2017-03-03] MEDS: THIAMINE HCL 100 MG TABLET PO SCH (10:46)
--- NOTE | 2017-03-03 11:55 | NUR ---
ORDERED PT, OT, ST EVAL PER ORDER. FOLLOWED UP WITH MD REGARDING PAIN MEDS. ORDERS WILL STAY THE SAME MD SEES NO REASON FOR HIM TO HAVE MORPHINE. MD ALSO DOES NOT WANT TO GIVE HIM FULL BRP OR SMOKING PRIVLEDGES AT THIS TIME, WILL CONSIDER AFTER PT, OT EVAL. WILL CONTINUE TO MONITOR. WILL DISCUSS WITH PATIENT.
[2017-03-03] MEDS ORDERED: IV SET PRIMARY PUMP SET 1 EA INFUS.SET MC ONE ×2 (13:33→20:49)
[2017-03-03] MEDS: MENTHOL/CETYLPYRD (CEPACOL) 1 LOZ LOZENGE PO PRN ×2 (13:46→21:10)
[2017-03-03 16:00] VITALS: BP 130/75
--- NOTE | 2017-03-03 16:03 | NUR ---
ADMINISTERED FIRST DOSE OF NORCO ORDERED, PATIENT STATES "INEFFECTIVE, I STILL HAVE 10/10 PAIN." ADMINISTERED SECOND DOSE OF NORCO ORDERED, PATIENT STATED "THAT DIDN'T WORK, I STILL HAVE 9/10 PAIN." WILL ADMINISTER MORPHINE ORDERED. PATIENT VERBALIZES UNDERSTANDING.
[2017-03-03] MEDS: MORPHINE SULFATE INJ 2 MG/ML DISP.SYRIN IV PRN ×2 (16:13→18:43)
--- NOTE | 2017-03-03 18:45 | NUR ---
PATIENT LEFT VIA WHEELCHAIR ACCOMPANIED BY FLOWER POT PRESS OPERATOR FOR PROCEDURE, XRAY OF THE LOWER BACK SPINE. IN STABLE CONDITION. PAIN 02/23.
--- NOTE | 2017-03-03 19:38 | NUR ---
RN PM NOTES PATIENT RETURNED FROM XRAY VIA WHEELCHAIR ACCOMPANIED BY SANITARY CHEMIST IN STABLE CONDITION. PAIN RATED 4/10. ENDORSED TO NEXT SHIFT.
[2017-03-03 19:50] VITALS: BP 140/83
--- NOTE | 2017-03-03 19:55 | NUR ---
MS RN INITIAL NOTES: RECEIVED REPORT FROM DAY RN. PT JUST GOT BACK FROM X RAY. A/O X3, C/O 7/10 PAIN ON HIS LOWER BACK REQUESTING FOR NORCO AND CEPACOL FOR HIS THROAT PAIN. LEFT IV ACCESS PATENT AND FLUSHING WELL, INFUSING WITH D5 1/2 NS AT 150ML/HR. PT NOTED TO HAVE BRUISES ON BOTH ARMS. PT REFUSED SCD, EDUCATION PROVIDED TO THE PT. MD AWARE REGARDING PT'S VTE SCORE, AWAITING ORDER FOR CHEMICAL PROPHYLAXIS. SAFETY PRECAUTIONS FOR FALL INITIATED CALL LIGHT IN REACH, WILL CONTINUE TO MONITOR
[2017-03-03 20:00] VITALS: BP 140/83
--- NOTE | 2017-03-03 20:31 | NUR ---
MS RN NOTES: PER EXECUTIVE ACCOUNT MANAGER SALGADO, PT HAS HX OF MRSA NARES WHEN ADMITTED LAST MONTH, SWAB TAKEN TO LAB FOR MICROBIOLOGY TEST, FOR THE MEAN TIME, PER PROTOCOL, PT WILL BE TRANSFERRED TO [facility], WITH MRSA NARES ISOLATION, ALL BELONGINGS BROUGHT WITH THE PT UPON TRANSFER, PLACED ON BELONGING BAG AND LEAVE AT BEDSIDE TABLE OF PT IN [facility]
[2017-03-03] MEDS: IV D5/0.45 NACL 1,000 ML IV PRN (21:10)
--- NOTE | 2017-03-03 21:11 | NUR ---
MS RN NOTES PT REQUESTED FOR HIS CEPACOL FOR THROAT PAIN, ALSO REQUESTING FOR PAIN MEDICATION, STATED HE'S LOWER BACK IS HURTING 05/25, PRN NORCO 5/325 MG TAB PO ADMINISTERED TO THE PT At this time, educate pt regarding medication side effect, will continue to monitor and reassess
[2017-03-03 22:00] VITALS: BP 135/76
--- NOTE | 2017-03-03 22:00 | NUR ---
ms rn notes: asked pt if he's taking any blood thinner because he has a lot of bruise on his arms, pt stated he's not taking anything but has been on coumadin for a while, but stated he's primary doctor dc it but he doesnt know the reason. asked pt what's the dosage of the medication/coumadin but pt stated he cannot recall.
[2017-03-03] MEDS: ONDANSETRON HCL/PF 4 MG/2 ML VIAL IVP PRN (23:11)
--- NOTE | 2017-03-03 23:11 | NUR ---
MS RN NOTES: PT C/O NAUSEA ASKING FOR HIS NAUSEA MEDICINE, PRN ZOFRAN 4MG IVP ADMINISTERED TO THE PT AT THIS TIME, WILL CONTINUE TO MONITOR AND REASSESS
[2017-03-04 02:40] VITALS: BP 138/78
[2017-03-04] MEDS: MORPHINE SULFATE INJ 2 MG/ML DISP.SYRIN IV PRN (02:41)
[2017-03-04] MEDS: IV D5/0.45 NACL 1,000 ML IV PRN (02:41)
--- NOTE | 2017-03-04 02:42 | NUR ---
RN NOTES: PT CALLED C/O LOWER BACK PAIN 06/25 REQUESTING FOR MORPHINE, PRN MORPHINE 2MG IVP ADMINISTERED TO THE PT AT THIS TIME, WILL CONTINUE TO MONITOR AND REASSESS
--- NOTE | 2017-03-04 06:41 | NUR ---
MS RN CLOSING NOTES: PT ON BED, AWAKE, REMAINS ON ROOM AIR, DENIES ANY SOB, A/O X3, PT DENIES ANY NAUSEA AT THIS TIME, NO VOMITING NOTED THROUGHOUT THE SHIFT, LAST PAIN MEDICATION GIVEN AT 0241am. LEFT AC IV ACCESS REMAINS PATENT AND FLUSHING WELL, INFUSING WITH D5 1/2 NS AT 150ML/HR. VS REMAINS STABLE, NEEDS ATTENDED. AWAITING RESULT OF LUMBAR X RAY. SAFETY PRECAUTIONS FOR FALL REMAINS ENGAGED. CALL LIGHT IN REACH. WILL ENDORSE TO DAY RN FOR RICARDO.
[2017-03-04 06:56] LABS: ALBUMIN 3.2 g/dL (3.4-5.0); BILIRUBIN,TOTAL 1.4 mg/dL (0.2-1.0); CALCIUM, SERUM 8.4 mg/dL (8.5-10.1); CREATININE 0.7 mg/dL (0.6-1.3); POTASSIUM 3.1 mmol/L (3.5-5.1); TOTAL PROTEIN, SERUM 6.7 g/dL (6.4-8.2)
[2017-03-04 07:10] LABS: LACTIC ACID 1.4 mmol/L (0.4-2.0)
--- NOTE | 2017-03-04 07:15 | NUR ---
ms rn notes: went to pt's room to reconnect pt to ivf, found pt not there and not in the bathroom, called security, asked if there's pt in the smoking area, security stated there's a pt there but going back to the unit already, pt went back to the unit, told pt he's not allowed to smoke and cannot just sneak out of the room, pt apologized. given report to jerry camacho rn.
[2017-03-04] MEDS ORDERED: coumadin (07:33)
[2017-03-04 07:38] LABS: BASOPHILS % (AUTO) 0.5 % (0.0-2.0); EOSINOPHILS % (AUTO) 0.5 % (0.0-6.0); HEMATOCRIT 37 % (39-51); HEMOGLOBIN 12.7 g/dL (13.5-17.5); LYMPHOCYTES % (AUTO) 20.2 % (20.0-44.0); MEAN CORPUSCULAR HEMOGLOBIN 35 PG (26.0-33.0); MEAN CORPUSCULAR HGB CONC 35 g/dl (31.0-36.0); MEAN CORPUSCULAR VOLUME 101 fL (80-96); MONOCYTES # (AUTO) 0.4 /CMM (0.1-1.30); MONOCYTES % (AUTO) 7.9 % (2.0-12.0); NEUTROPHILS # (AUTO) 3.5 /CMM (1.8-8.9); NEUTROPHILS % (AUTO) 70.9 % (43.0-81.0); RDW COEFFICIENT OF VARIATION 14.8 (11.5-15.0); RED BLOOD CELL COUNT(AUTO) 3.64 MIL/uL (4.5-6.0); WHITE BLOOD COUNT (AUTO) 4.9 K/uL (4.3-11.0)
[2017-03-04 07:43] LABS: PLATELET COUNT (AUTO) 50 /CMM (150-450)
[2017-03-04 08:00] VITALS: BP 116/71
--- NOTE | 2017-03-04 08:00 | NUR ---
MS RN AM NOTES: RECEIVED PT A/O X3, KEEPS ASKING FOR MORPHINE EVEN IF PT DOESN'T SHOW SYMPTOMS OF BEING IN PAIN.PT SLEEPS MOST OF THE TIME.LEFT IV ACCESS PATENT AND FLUSHING WELL, INFUSING WITH D5 1/2 NS AT 150ML/HR. PT NOTED TO HAVE BRUISES ON BOTH ARMS. PT REFUSED SCD, EDUCATION PROVIDED TO THE PT. MD AWARE REGARDING PT'S VTE SCORE, AWAITING ORDER FOR CHEMICAL PROPHYLAXIS. SAFETY PRECAUTIONS FOR FALL INITIATED CALL LIGHT IN REACH, WILL CONTINUE TO MONITOR
--- NOTE | 2017-03-04 08:20 | NUR ---
ON CONTACT ISOLATION PRECAUTIONS FOR HX OF MRSA NARES.
[2017-03-04] MEDS: THIAMINE HCL 100 MG TABLET PO SCH (08:54)
[2017-03-04] MEDS: PANTOPRAZOLE 40 MG TABLET.DR PO SCH (08:54)
[2017-03-04] MEDS: FOLIC ACID 1 MG TABLET PO SCH (08:54)
[2017-03-04] MEDS: MULTIVITAMINS W-MINERALS 1 TAB TABLET PO SCH (08:54)
[2017-03-04 09:31] LABS: ANISOCYTOSIS 1+; BAND % (MANUAL) 2 % (0.0-5.0); LYMPHOCYTES % (MANUAL) 24 % (16-48); MONOCYTES % (MANUAL) 4 % (0-11.0); NEUTROPHILS % (MANUAL) 70 (42-76); PLATELET ESTIMATE DECREASED
[2017-03-04] MEDS: ONDANSETRON HCL/PF 4 MG/2 ML VIAL IVP PRN (11:46)
[2017-03-04] MEDS: POTASSIUM CHLORIDE 20 MEQ TAB.PRT.SR PO SCH ×2 (11:46→13:25)
[2017-03-04] MEDS: HYDROCODONE/APAP 5/325MG 1 EACH TABLET PO PRN ×2 (11:46→19:54)
[2017-03-04] MEDS: IV NS 0.9% 1,000 ML IV PRN (11:54)
--- NOTE | 2017-03-04 13:26 | NUR ---
Social service consult requested by Med Surg ESTHER Cruz for ETOH abuse and homelessness. Per H&P report by Dr. Zendejas, patient is a 61-year old male with a PMHx of CVA x 2, CAD w/ [place] x 2, chronic back pain, dementia, incoordination, and generalized weakness. Pt reported a history of homelessness and ETOH abuse. He reported a recent period of sobriety. However, he reported that due to dissatisfaction with his life he began drinking again. 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 He reported having great passion for music and that his goal is to return to making music one day. He reported a history of depression and anxiety related to no longer being able to produce music due to his health and due to splitting up with his . Moreover, since he is no longer able to produce music, his resources are scarce and he has experienced episodes of homelessness. Patient was admitted to [facility] for ETOH ketoacidosis. SW met with patient at bedside. Pt was alert and oriented x4. Pt presented in a dysphoric mood with congruent affect. Pt denied any suicidal or homicidal ideation. Pt reported feeling depressed and anxious. Pt reported current ETOH abuse, but did not want to specify the amount he was drinking. Pt denied any other substance abuse. Pt reported being linked to [facility] [[address] [place] [address]; [phone]] for behavioral health services. He reported that his outpatient case manager there was Arlin. He reported receiving SSI ($1000/month). Pt reported not needed any resources upon discharge since he is receiving services at [facility]. Pt stated that he would like to be discharged to [address] [facility] [address]; [place] [address] once medically cleared. SW will update outpatient case manager regarding pt's discharge plan.
[2017-03-04 16:00] VITALS: BP 127/83
--- NOTE | 2017-03-04 18:22 | NUR ---
PT LYING IN BED RESTING IN BED INSISTING TO SMOKE OUTSIDE.EXPLAINED THAT HE CAN'T SMOKE OUTSIDE SINCE HE'S ON MRSA CONTACT ISOLATION PRECAUTIONS.DENIES DISTRESS.KEEPS ASKING FOR PAIN MEDICINE,MORPHINE EVEN IF HE IS SLEEPING COMFORTABLY.
--- NOTE | 2017-03-04 18:24 | NUR ---
EXPLAINED THE RISKS OF TAKING PAIN MEDICINE LIKE NAUSEA AND VOMITING,PT CALMED DOWN AND STOPPED ASKING FOR PAIN MEDICINE OFTEN.
--- NOTE | 2017-03-04 19:05 | NUR ---
RN NOTE RECEIVED REPORT. PT AAOX4, RESTING COMFORTABLY IN BED. DENIES PAIN/DISCOMFORT. BREATHING NON-LABORED AND EVEN. LAC INTACT AND PATENT. TOLERATING FLUIDS WELL. CALL LIGHT IN REACH. WILL CONT TO MONITOR.
[2017-03-04 20:00] VITALS: BP 118/83
[2017-03-05] MEDS: HYDROCODONE/APAP 5/325MG 1 EACH TABLET PO PRN (03:51)
[2017-03-05] MEDS: IV NS 0.9% 1,000 ML IV PRN (03:51)
--- NOTE | 2017-03-05 04:01 | NUR ---
rn note prn norco given for pain. will cont to montior.
--- NOTE | 2017-03-05 06:24 | NUR ---
RN NOTE NO SIGNIFICANT CHANGES THIS SHIFT. PT SLEPT WELL AT NIGHT. NO C/O PAIN OR DISCOMFORT AT THIS TIME. BREATHING NON-LABORED AND EVEN. CALL NEEDS ATTENED TO, CALL LIGHT IN REACH. WILL F/U WITH DAY SHIF FOR RICARDO.
[2017-03-05 07:15] LABS: BASOPHILS % (AUTO) 0.3 % (0.0-2.0); EOSINOPHILS # (AUTO) 0.1 /CMM (0.0-0.7); EOSINOPHILS % (AUTO) 1.5 % (0.0-6.0); HEMATOCRIT 33 % (39-51); HEMOGLOBIN 12.8 g/dL (13.5-17.5); LYMPHOCYTES # (AUTO) 1.1 /CMM (0.8-4.8); LYMPHOCYTES % (AUTO) 25.8 % (20.0-44.0); MEAN CORPUSCULAR HEMOGLOBIN 50 PG (26.0-33.0); MEAN CORPUSCULAR HGB CONC 39 g/dl (31.0-36.0); MEAN CORPUSCULAR VOLUME 126 fL (80-96); MONOCYTES # (AUTO) 0.4 /CMM (0.1-1.30); MONOCYTES % (AUTO) 10.2 % (2.0-12.0); NEUTROPHILS # (AUTO) 2.6 /CMM (1.8-8.9); NEUTROPHILS % (AUTO) 62.2 % (43.0-81.0); PLATELET COUNT (AUTO) 55 /CMM (150-450); RED BLOOD CELL COUNT(AUTO) 2.58 MIL/uL (4.5-6.0); WHITE BLOOD COUNT (AUTO) 4.3 K/uL (4.3-11.0)
--- NOTE | 2017-03-05 07:30 | NUR ---
RN MS NOTES PT AWAKE, ALERT AND ORIENTED, WALKING INSIDE HIS ROOM, NO COMPLAINT OF PAIN, NOT IN DISTRESS, CALL LIGHT WITHIN REACH, NEEDS ATTENDED.
[2017-03-05 07:41] LABS: ALBUMIN 3.2 g/dL (3.4-5.0); BILIRUBIN,TOTAL 1.3 mg/dL (0.2-1.0); CALCIUM, SERUM 8.4 mg/dL (8.5-10.1); CREATININE 0.6 mg/dL (0.6-1.3); POTASSIUM 3.2 mmol/L (3.5-5.1); TOTAL PROTEIN, SERUM 6.7 g/dL (6.4-8.2)
[2017-03-05 08:00] VITALS: BP 111/68
[2017-03-05] MEDS ORDERED: POTASSIUM CHLORIDE 20 MEQ TAB.PRT.SR PO SCH (09:30)
[2017-03-05 09:35] LABS: BAND % (MANUAL) 11 % (0.0-5.0); EOSINOPHILS % (MANUAL) 1 % (0-4); LYMPHOCYTES % (MANUAL) 20 % (16-48); MONOCYTES % (MANUAL) 6 % (0-11.0); NEUTROPHILS % (MANUAL) 62 (42-76)
[2017-03-05 09:36] LABS: ANISOCYTOSIS 1+; BASOPHILS % (MANUAL) 0 % (0.0-2.0); PLATELET ESTIMATE DECREASED
[2017-03-05] MEDS: MULTIVITAMINS W-MINERALS 1 TAB TABLET PO SCH (09:37)
[2017-03-05] MEDS: THIAMINE HCL 100 MG TABLET PO SCH (09:37)
[2017-03-05] MEDS: FOLIC ACID 1 MG TABLET PO SCH (09:37)
[2017-03-05] MEDS: PANTOPRAZOLE 40 MG TABLET.DR PO SCH (09:37)
--- NOTE | 2017-03-05 12:00 | NUR ---
RN MS NOTES PT AWAKE, NOT IN PAIN OR DISTRESS, PT SEEN BY DR. HEARD, DISCHARGE ORDER GIVEN, DISCHARGE AND MEDICATION INSTRUCTIONS PROVIDED TO PT, VERBALIZED UNDERSTANDING, PRESCRIPTION PROVIDED TO PT, BELONGINGS ACCOUNTED FOR, SKIN CHECK DONE, ASSISTED TO HOSPITAL LOBBY, LEFT VIA TAXI IN STABLE CONDITION.
== END 2017-03-05 11:50 | disposition home or self-care (01) | DRG 425 ==
LOC: ER 06:06 → MED 10:23
PROVIDERS: ADMIT Family Medicine; ATTEND Family Medicine
DX: E87.2 Acidosis (principal); D69.6 Thrombocytopenia, unspecified; F03.90 Unspecified dementia, unspecified severity, without behavioral disturbance, psychotic disturbance, mood disturbance, and anxiety; F10.188 Alcohol abuse with other alcohol-induced disorder; Y90.3 Blood alcohol level of 60-79 mg/100 ml; I25.10 Atherosclerotic heart disease of native coronary artery without angina pectoris; I25.2 Old myocardial infarction; Z86.73 Personal history of transient ischemic attack (TIA), and cerebral infarction without residual deficits; F17.210 Nicotine dependence, cigarettes, uncomplicated; G89.29 Other chronic pain; M54.9 Dorsalgia, unspecified
CPT/HCPCS: 36415; 71010-TC; 72110-TC; 80048-TC; 80053-TC; 80061-TC; 80076-TC; 80305; 81000-TC; 82010-TC; 83605-TC; 83735-TC; 83935-TC; 84100-TC; 84484-TC; 85025-TC; 87081-TC; 92521; 97001-TC; 97003-TC; A4606; G0480; J0780; J2270; J2405; J3411; J3490; J7030; J7060; J7120; Z7610

== ENCOUNTER 2018-01-02 10:47 | Inpatient (IN) | payer OTHER ==
[~2018-01-02] VITALS: Ht 182.9 cm; Wt 81.6 kg
[~2018-01-02 10:47] MED LIST changes: -ASPI-605 PO; +coumadin
[2018-01-02] MEDS ORDERED: LORAZEPAM INJ 2 MG/ML VIAL ONE ×3 (11:10→15:02)
[2018-01-02] MEDS ORDERED: ASPI-1169 PO (11:16)
[2018-01-02 11:20] LABS: BASOPHILS % (AUTO) 0.3 % (0.0-2.0); EOSINOPHILS % (AUTO) 1.1 % (0.0-6.0); HEMATOCRIT 42 % (39-51); LYMPHOCYTES # (AUTO) 1.2 /CMM (0.8-4.8); LYMPHOCYTES % (AUTO) 29.2 % (20.0-44.0); MEAN CORPUSCULAR HEMOGLOBIN 37 PG (26.0-33.0); MEAN CORPUSCULAR HGB CONC 36 g/dl (31.0-36.0); MEAN CORPUSCULAR VOLUME 103 fL (80-96); MONOCYTES # (AUTO) 0.5 /CMM (0.1-1.30); MONOCYTES % (AUTO) 11.6 % (2.0-12.0); NEUTROPHILS # (AUTO) 2.5 /CMM (1.8-8.9); NEUTROPHILS % (AUTO) 57.8 % (43.0-81.0); PLATELET COUNT (AUTO) 90 /CMM (150-450); RDW COEFFICIENT OF VARIATION 12.3 (11.5-15.0); WHITE BLOOD COUNT (AUTO) 4.2 K/uL (4.3-11.0)
[2018-01-02] MEDS ORDERED: LORAZEPAM INJ 2 MG/ML VIAL IV ONE ×3 (11:30→14:30)
[2018-01-02 11:36] LABS: INR 0.95 (0.85-1.15); TROPONIN I < 0.017 ng/mL (0.00-0.056)
[2018-01-02 11:53] LABS: ALBUMIN 3.5 g/dL (3.4-5.0); BILIRUBIN,TOTAL 1.7 mg/dL (0.2-1.0); CALCIUM, SERUM 8.8 mg/dL (8.5-10.1); CREATININE 0.8 mg/dL (0.6-1.3); POTASSIUM 3.4 mmol/L (3.5-5.1); TOTAL PROTEIN, SERUM 8.6 g/dL (6.4-8.2)
[2018-01-02 12:07] LABS: THYROID STIMULATING HORMONE 1.626 uIU/mL (0.358-3.74)
--- NOTE | 2018-01-02 12:07 | NUR ---
PT PRESENTS WITH C/O COUGHING & CONGESTION X 2 DAYS. THE PT ALSO REPORTS VOMITING AND DIARRHEA (X 6 EACH IN PAST 24 HR). PT DENIES CHEST AND/OR ABD PAIN. PT A/OX3. NAD. SKIN WARM AND DRY. ABDOMEN SOFT, NON-TENDER. HYPOACTIVE BS X 4. PT OBSERVING SHAKING. PT STATES THAT HIS LAST ALCOHOLIC BEVERAGE WAS X 1 WEEK AGO.
[2018-01-02 12:08] LABS: ACETAMINOPHEN < 10 ug/ml (10-30); ALCOHOL, BLOOD < 3 mg/dL (0-0)
[2018-01-02 13:56] LABS: APPEARANCE,URINE Clear (CLEAR); BILIRUBIN,URINE LARGE (NEGATIVE); BLOOD, URINE Negative Ery/uL (NEGATIVE); COLOR,URINE Amber (YELLOW); KETONES,URINE >=160 (NEGATIVE); LEUKOCYTE ESTERASE ,URINE Negative (NEGATIVE); NITRITE, URINE Positive (NEGATIVE); PROTEIN,URINE 30 mg/dl (NEGATIVE); UGLUCOSE Negative (NEGATIVE)
[2018-01-02] MEDS ORDERED: Magnesium 1 GM/2 ML VIAL IV ONE (14:00)
[2018-01-02] MEDS ORDERED: Magnesium 1 GM/2 ML VIAL ONE (14:08)
[2018-01-02 14:19] LABS: BACTERIA,URINE 2+ /HPF (None Seen); RBC,URINE NONE SEEN /HPF (0-2); SQUAMOUS EPITHELIAL CELL,UR None Seen /HPF (None Seen); WBC,URINE NONE SEEN /HPF (0-3)
[2018-01-02] MEDS ORDERED: Magnesium 1GM/D5W 100ML PREMIX PIGGYBACK IV ONE (14:30)
[2018-01-02] MEDS ORDERED: IV NS 0.9% 1,000 ML BAG IV ONE (14:30)
--- NOTE | 2018-01-02 14:35 | NUR ---
BED 307-2
[2018-01-02 14:44] LABS: BAND % (MANUAL) 6 % (0.0-5.0); BASOPHILS % (MANUAL) 0 % (0.0-2.0); EOSINOPHILS % (MANUAL) 0 % (0-4); LYMPHOCYTES % (MANUAL) 33 % (16-48); MONOCYTES % (MANUAL) 9 % (0-11.0); NEUTROPHILS % (MANUAL) 52 (42-76)
[2018-01-02] MEDS ORDERED: Magnesium 1GM/D5W 100ML PREMIX 100 ML IV ONE (15:02)
[2018-01-02] MEDS ORDERED: ACETAMINOPHEN 325 MG TABLET PO PRN (15:30)
[2018-01-02] MEDS ORDERED: POTASSIUM CHLORIDE 20 MEQ TAB.PRT.SR PO ONE (15:30)
[2018-01-02] MEDS ORDERED: LORAZEPAM INJ 2 MG/ML VIAL IV PRN (15:30)
[2018-01-02] MEDS ORDERED: MAG HYDROX/AL HYDROX/SIMETH 30 ML UDC PO PRN (15:30)
[2018-01-02] MEDS ORDERED: Z GUARD REMEDY 2 OZ OINT TP PRN (15:30)
[2018-01-02] MEDS ORDERED: MAGNESIUM HYDROXIDE 30 ML UDC PO PRN (15:30)
[2018-01-02] MEDS ORDERED: ZOLPIDEM TARTRATE 5 MG TABLET PO PRN (15:30)
--- NOTE | 2018-01-02 15:35 | NUR ---
STOCKING AND BOX SHOP SUPERVISOR NOTES RECEIVED PATIENT IN STABLE CONDITION. IN NO APPARENT DISTRESS. BEDSIDE RAILS ARE UPX2 .BED IS LOCKED AND LOWERED. CALL LIGHT IS WITHIN REACH. WILL CONTINUE TO MONITOR.
[2018-01-02 16:00] VITALS: BP 137/86
[2018-01-02] MEDS: THIAMINE HCL 100 MG TABLET PO SCH (16:26)
[2018-01-02] MEDS: FOLIC ACID 1 MG TABLET PO SCH (16:26)
[2018-01-02] MEDS: PANTOPRAZOLE 40 MG TABLET.DR PO SCH (16:26)
[2018-01-02] MEDS ORDERED: ENOXAPARIN SODIUM 40 MG/0.4 ML DISP.SYRIN SQ SCH (17:00)
[2018-01-02] MEDS: IV NS 0.9% 1,000 ML IV PRN (17:34)
--- NOTE | 2018-01-02 19:00 | NUR ---
Recieved patient getting out of the bed, not coopertive, instructed him to use the call light, the noise was the bed alarm to let me know you are getting oob and need assist, ambulated him to the bathroom with miniimal assist. Unsteady gait, getting off the toilet he started to walk ans i had to remind hi to pull up is underwear. He started asking for food he seems so hungary. Tolerated sandwitches and linda crackers and juices. speech clear and moving all extremities
--- NOTE | 2018-01-02 19:30 | NUR ---
GENETIC SCIENTIST CLOSING NOTES PATIENT IS ALERT AND RESTING IN BED. IN NO APPARENT DISTRESS. BEDSIDE RAILS ARE UPX2. BED IS LOCKED AND LOWERED. CALL LIGHT IS WITHIN REACH. ALL NEEDS WERE MET. WILL ENDORSE CARE TO SOFTWARE QUALITY TESTER NURSE FOR RICARDO.
[2018-01-02 20:00] VITALS: BP 128/81
[2018-01-02 20:34] VITALS: BP 128/81
[2018-01-02] MEDS: HYDROCODONE/APAP 5/325MG 1 EACH TABLET PO PRN (21:03)
[2018-01-03] VITALS (9 sets, daily range): BP systolic 125–164; BP diastolic 75–91
[2018-01-03] MEDS: HYDROCODONE/APAP 5/325MG 1 EACH TABLET PO PRN ×3 (00:56→09:08)
[2018-01-03] MEDS: IV NS 0.9% 1,000 ML IV PRN ×3 (01:25→17:53)
--- NOTE | 2018-01-03 04:40 | NUR ---
MR HOLM ALERT AND ORIENTATED X3. LARGE APPETITE REQUISTING FOOD THROUGH THE NIGHT AND EATING W/O NAUSES. URINE STARTED AT THE BEGINNING OF THE SHIFT DARK JIN IN COLOR AND THROUGH THE NIGHT HE DRANK WATER AND JUICES HIS URINE IS NOW CLEAR AND CLEAR JIN. REQUISTING HIS PAIN MEDICATION EVERY 4 HOURS FOR 'ALL OVER HURT' EFFECTIVE. AMBULATED TO THE BATHROOM NO STEADY ON HIS LEGS BED ALARM USED AT ALL TIMES
[2018-01-03 07:00] LABS: CALCIUM, SERUM 8.3 mg/dL (8.5-10.1); CREATININE 0.6 mg/dL (0.6-1.3); MAGNESIUM 2.1 mg/dL (1.8-2.4); PHOSPHORUS 3.3 mg/dL (2.5-4.9); POTASSIUM 3.6 mmol/L (3.5-5.1)
[2018-01-03 07:01] LABS: THYROID STIMULATING HORMONE 2.87 uIU/mL (0.358-3.74)
--- NOTE | 2018-01-03 07:30 | NUR ---
RN OPEN NOTES RECEIVED REPORT FROM THIRD MATE NURSE. WILL CONTINUE TO ASSESS AND MONITOR PATIENT.
[2018-01-03 08:09] LABS: BASOPHILS % (AUTO) 0.6 % (0.0-2.0); EOSINOPHILS # (AUTO) 0.1 /CMM (0.0-0.7); EOSINOPHILS % (AUTO) 2.7 % (0.0-6.0); HEMATOCRIT 37 % (39-51); HEMOGLOBIN 13.2 g/dL (13.5-17.5); LYMPHOCYTES # (AUTO) 1.2 /CMM (0.8-4.8); LYMPHOCYTES % (AUTO) 39.3 % (20.0-44.0); MEAN CORPUSCULAR HEMOGLOBIN 36 PG (26.0-33.0); MEAN CORPUSCULAR HGB CONC 35 g/dl (31.0-36.0); MEAN CORPUSCULAR VOLUME 103 fL (80-96); MONOCYTES # (AUTO) 0.4 /CMM (0.1-1.30); MONOCYTES % (AUTO) 13.2 % (2.0-12.0); NEUTROPHILS # (AUTO) 1.4 /CMM (1.8-8.9); NEUTROPHILS % (AUTO) 44.2 % (43.0-81.0); PLATELET COUNT (AUTO) 76 /CMM (150-450); RDW COEFFICIENT OF VARIATION 13.3 (11.5-15.0); RED BLOOD CELL COUNT(AUTO) 3.63 MIL/uL (4.5-6.0); WHITE BLOOD COUNT (AUTO) 3.1 K/uL (4.3-11.0)
[2018-01-03] MEDS: PANTOPRAZOLE 40 MG TABLET.DR PO SCH (09:08)
[2018-01-03] MEDS: THIAMINE HCL 100 MG TABLET PO SCH (09:08)
[2018-01-03] MEDS: ONDANSETRON HCL/PF 4 MG/2 ML VIAL IVP PRN (09:08)
[2018-01-03] MEDS: FOLIC ACID 1 MG TABLET PO SCH (09:08)
[2018-01-03 11:59] LABS: BAND % (MANUAL) 3 % (0.0-5.0); EOSINOPHILS % (MANUAL) 2 % (0-4); LYMPHOCYTES % (MANUAL) 55 % (16-48); MONOCYTES % (MANUAL) 3 % (0-11.0); NEUTROPHILS % (MANUAL) 37 (42-76)
[2018-01-03] MEDS: HYDROMORPHONE INJ 0.5 MG/0.5 ML SYRINGE IV PRN ×3 (13:52→21:54)
[2018-01-03] MEDS: ALBUTEROL FS 2.5 MG/3 ML VIAL.NEB NEB SCH ×3 (16:46→23:30)
[2018-01-03] MEDS: IPRATROPIUM NEB FS 0.5 MG/2.5 ML AMPUL.NEB NEB SCH ×3 (16:46→23:30)
--- NOTE | 2018-01-03 17:00 | NUR ---
PATIENT PLATELET IS 76. PHARMACY NOTIFIED REGARDING THE LOVENOX AT 2100. PHARMACY CONTACTED DR BROWN AND SHE CONFIRMS THAT IT IS OK TO GIVE.
--- NOTE | 2018-01-03 18:42 | NUR ---
RN CLOSING NOTES PATIENT IS ALERT AND ORIENTED TO NAME, PLACE AND TIME. RESTING IN BED. NO SIGNS AND SYMPTOMS OF DISTRESS. PAIN LEVEL 4/10, LAST DILAUDID ADMINISTERED AT 1800. BED IN LOW POSITION, LOCKED AND TWO BEDSIDE RAILS ARE UP. CALL LIGHT IS WITHIN REACH FOR SAFETY. ALL NEEDS WERE MET. ALL NURSING CARE ANTICIPATED AND ATTENDED FOE. NO ACUTE CHANGED DURING THE SHIFT. WILL ENDORSE CARE TO DATA ANALYST ETL DEVELOPER NURSE.
--- NOTE | 2018-01-03 19:20 | NUR ---
recieved patient alert and orientated speech clear verbalizes his needs requisting a room change dt the noise in his room and too much light to sleep . skin warm and dry keenly alert states he is comfortable at this time no coughing lungs clear
[2018-01-03] MEDS: ENOXAPARIN SODIUM 40 MG/0.4 ML DISP.SYRIN SQ SCH (21:56)
[2018-01-04] MEDS: IV NS 0.9% 1,000 ML IV PRN ×2 (00:30→06:25)
[2018-01-04] MEDS: HYDROMORPHONE INJ 0.5 MG/0.5 ML SYRINGE IV PRN ×5 (01:55→22:18)
[2018-01-04] MEDS: IPRATROPIUM NEB FS 0.5 MG/2.5 ML AMPUL.NEB NEB SCH ×6 (03:15→22:49)
[2018-01-04] MEDS: ALBUTEROL FS 2.5 MG/3 ML VIAL.NEB NEB SCH ×6 (03:15→22:49)
--- NOTE | 2018-01-04 04:28 | NUR ---
Mr. Cardenas is alert and orientated. His strength in his legs and in general has increase from just 24 hours ago. He is much more keenly aler and talkative. Sppech clear. He complains of pain in his lower back and dilaudid 0.25 mg is given and effective. given Q4 hours. His urine is bright clean yellow in color, using the urinal. no coughing nod this 12 hours. lungs via auscultation clear on room air
[2018-01-04] MEDS ORDERED: DILTIAZEM HCL 30 MG TABLET ONE (05:29)
[2018-01-04 07:43] LABS: CREATININE 0.6 mg/dL (0.6-1.3); POTASSIUM 3.6 mmol/L (3.5-5.1)
[2018-01-04 07:56] LABS: ALBUMIN 2.7 g/dL (3.4-5.0); BILIRUBIN,DIRECT 0.3 mg/dL (0.0-0.2); BILIRUBIN,TOTAL 0.7 mg/dL (0.2-1.0); MAGNESIUM 1.9 mg/dL (1.8-2.4); PHOSPHORUS 3.7 mg/dL (2.5-4.9); TOTAL PROTEIN, SERUM 6.4 g/dL (6.4-8.2)
[2018-01-04 08:00] VITALS: BP 126/78
[2018-01-04] MEDS ORDERED: FOLIC ACID 1 MG TABLET PO SCH (09:00)
[2018-01-04] MEDS: THIAMINE HCL 100 MG TABLET PO SCH (10:45)
[2018-01-04] MEDS: FOLIC ACID 1 MG TABLET PO SCH (10:45)
[2018-01-04] MEDS: PANTOPRAZOLE 40 MG TABLET.DR PO SCH (10:45)
[2018-01-04] MEDS: ASPIRIN 81 MG TAB.CHEW PO SCH (10:45)
[2018-01-04] MEDS: MULTIVITAMINS,THERAGRAN 1 UDTAB TABLET PO SCH (10:45)
--- NOTE | 2018-01-04 12:00 | NUR ---
m/s light rail transit operator: notes received pt in bed awake, a/ox4 and c/o 8/10 lower back pain. offered norco, but pt refused, stated, "it doesn't work for me, i want the shot." educated pt on narcotic use, but still insisted getting the dilaudid shot. rn covering made aware.
--- NOTE | 2018-01-04 12:10 | NUR ---
m/s mathematics improvement teacher: notes c/o 06/25 lower back pain, medicated with dilaudid 0.25mg ivp by rn. instructed to call for assistance. will monitor.
--- NOTE | 2018-01-04 12:40 | NUR ---
m/s cook fish eggs: notes pt verbalized 4/10 relief of lower back pain, instructed to call for assistance. will continue to monitor.
--- NOTE | 2018-01-04 15:24 | NUR ---
m/s wire coater: notes shaji pendleton called and informed me that pt is mrsa nares positive. cn made aware. isolation set up provided. pt made aware and educated pt re: mrsa.
[2018-01-04 16:00] VITALS: BP 106/68
--- NOTE | 2018-01-04 18:10 | NUR ---
m/s jewel bearing broacher: notes c/o 06/25 mid back pain, medicated with dilaudid 0.25mg ivp by rn. instructed to call for assistance. will monitor.
--- NOTE | 2018-01-04 18:40 | NUR ---
m/s slat basket maker machine: notes pt verbalized 4/10 relief of lower back pain, instructed to call for assistance. will continue to monitor.
--- NOTE | 2018-01-04 19:30 | NUR ---
MS RN NOTE: PATIENT RESTING IN BED, NO ACUTE DISTRESS NOTED. BREATHING EVEN AND UNLABORED, NO SOB NOTED. IV TO LEFT WRIST IN PLACE. BED LOCKED AND IN LOWEST POSITION, CALL LIGHT IN REACH. WILL CONTINUE TO MONITOR.
[2018-01-04 20:00] VITALS: BP 119/70
[2018-01-04] MEDS: MUPIROCIN OINT 2% 22 GM TUBE SCH (21:20)
[2018-01-04] MEDS: ENOXAPARIN SODIUM 40 MG/0.4 ML DISP.SYRIN SQ SCH (21:21)
--- NOTE | 2018-01-04 22:30 | NUR ---
MS RN NOTE: PATIENT COMPLAINS OF BACK PAIN 06/25, DILAUDID 0.25MG IV GIVEN PER MD ORDER. WILL CONTINUE TO MONITOR.
[2018-01-05] MEDS: HYDROMORPHONE INJ 0.5 MG/0.5 ML SYRINGE IV PRN ×2 (02:37→15:39)
--- NOTE | 2018-01-05 02:45 | NUR ---
MS RN NOTE: PATIENT COMPLAINS OF BACK PAIN 06/25, DILAUDID 0.25MG IV GIVEN PER MD ORDER. WILL CONTINUE TO MONITOR.
[2018-01-05] MEDS: IPRATROPIUM NEB FS 0.5 MG/2.5 ML AMPUL.NEB NEB SCH ×4 (03:30→15:30)
[2018-01-05] MEDS: ALBUTEROL FS 2.5 MG/3 ML VIAL.NEB NEB SCH ×4 (03:30→15:30)
--- NOTE | 2018-01-05 06:20 | NUR ---
MS RN NOTE: PATIENT RESTING IN BED, NO ACUTE DISTRESS NOTED. BREATHING EVEN AND UNLABORED, NO SOB NOTED. IV TO LEFT WRIST IN PLACE. BED LOCKED AND IN LOWEST POSITION, CALL LIGHT IN REACH. WILL ENDORSE TO DAY NURSE TO CONTINUE WITH PLAN OF CARE.
--- NOTE | 2018-01-05 07:40 | NUR ---
MS RN OPENING NOTE: PATIENT RESTING IN BED, NO ACUTE DISTRESS NOTED. BREATHING EVEN AND UNLABORED, NO SOB NOTED. IV TO LEFT WRIST IN PLACE. BED LOCKED AND IN LOWEST POSITION, CALL LIGHT IN REACH. WILL CONTINUE TO MONITOR
[2018-01-05 08:00] VITALS: BP 129/79
[2018-01-05] MEDS: PANTOPRAZOLE 40 MG TABLET.DR PO SCH (08:36)
[2018-01-05] MEDS: THIAMINE HCL 100 MG TABLET PO SCH (08:36)
[2018-01-05] MEDS: MULTIVITAMINS,THERAGRAN 1 UDTAB TABLET PO SCH (08:36)
[2018-01-05] MEDS: ASPIRIN 81 MG TAB.CHEW PO SCH (08:36)
[2018-01-05] MEDS: FOLIC ACID 1 MG TABLET PO SCH (08:37)
[2018-01-05] MEDS: MUPIROCIN OINT 2% 22 GM TUBE SCH (08:41)
[2018-01-05] MEDS ORDERED: FERROUS SULFATE (325 MG) 325 MG/TAB TABLET PO SCH (09:00)
[2018-01-05 09:02] LABS: CALCIUM, SERUM 8.8 mg/dL (8.5-10.1); CREATININE 0.7 mg/dL (0.6-1.3); MAGNESIUM 1.9 mg/dL (1.8-2.4); POTASSIUM 4.2 mmol/L (3.5-5.1)
[2018-01-05 09:13] LABS: BASOPHILS % (AUTO) 0.5 % (0.0-2.0); EOSINOPHILS # (AUTO) 0.1 /CMM (0.0-0.7); EOSINOPHILS % (AUTO) 2.6 % (0.0-6.0); HEMATOCRIT 35 % (39-51); HEMOGLOBIN 12.1 g/dL (13.5-17.5); LYMPHOCYTES % (AUTO) 27.7 % (20.0-44.0); MEAN CORPUSCULAR HEMOGLOBIN 36 PG (26.0-33.0); MEAN CORPUSCULAR HGB CONC 35 g/dl (31.0-36.0); MEAN CORPUSCULAR VOLUME 103 fL (80-96); MONOCYTES # (AUTO) 0.6 /CMM (0.1-1.30); MONOCYTES % (AUTO) 17.4 % (2.0-12.0); NEUTROPHILS # (AUTO) 1.8 /CMM (1.8-8.9); NEUTROPHILS % (AUTO) 51.8 % (43.0-81.0); PLATELET COUNT (AUTO) 98 /CMM (150-450); RDW COEFFICIENT OF VARIATION 13.3 (11.5-15.0); RED BLOOD CELL COUNT(AUTO) 3.38 MIL/uL (4.5-6.0); WHITE BLOOD COUNT (AUTO) 3.5 K/uL (4.3-11.0)
[2018-01-05 10:12] LABS: EOSINOPHILS % (MANUAL) 2 % (0-4); LYMPHOCYTES % (MANUAL) 36 % (16-48); MONOCYTES % (MANUAL) 9 % (0-11.0); NEUTROPHILS % (MANUAL) 53 (42-76)
[2018-01-05] MEDS: HYDROCODONE/APAP 5/325MG 1 EACH TABLET PO PRN (10:56)
[2018-01-05] MEDS: ONDANSETRON HCL/PF 4 MG/2 ML VIAL IVP PRN (10:56)
--- NOTE | 2018-01-05 11:03 | NUR ---
Social service consult requested by DAVID Lino for ETOH withdrawal and passing away. Pt. is a 62 year old male who was admitted to [facility] for ETOH withdrawal and dehydration. SW met with pt. bedside. Pt. is alert and oriented x 4. Pt. appears sad. Pt. states he resides alone at [address] [place] [address], [address] in [place]. [place]. In ED notes, it states that pt's two days ago. However when SW inquired about his , pt. stated he is from his and did not mention of her being .Pt. states he has Depression and Anxiety and sees psychiatrist Dr. Bauman weekly. Pt. states he drinks alcohol up to three times per week, preferably vodka and beer. Pt's last drink was a week ago. Pt. was taking medication for his anxiety and depression but stopped taking them because they made him sick. Pt. states he has no history of attending any alcohol treatment programs. Pt. denies suicidal/homicidal ideations and visual/ auditory hallucinations at this time. No other social service needs are required at this time. SW is available if needed.
[2018-01-05 16:00] VITALS: BP 139/76
--- NOTE | 2018-01-05 19:05 | NUR ---
MS GEAR LAPPER NOTE: PATIENT AWAKE ALERT AND VERBALLY RESPONSIVE,ABLE TO MAKE NEEDS KNOWN. NO ACUTE DISTRESS NOTED. BREATHING EVEN AND UNLABORED, NO SOB NOTED. IV TO LEFT WRIST AND ID BAND REMOVED WITH NO ASE NOTED.PICTURES OF SKIN TAKEN AND PLACED IN CHART. ALL DISCHARGE INSTRUCTIONS REVIEWED WITH VERBAL UNDERSTANDING NOTED. ALL BELONGINGS ACCOUNTED FOR. TAXI VOUCHER PROVIDED, DISCHARGED IN STABLE CONDITION, ASSISTED TO LOBBY
== END 2018-01-05 19:00 | disposition home or self-care (01) | DRG 775 ==
LOC: ER 10:49 → TELE 15:02 → MED 01-03 09:17
PROVIDERS: ADMIT Internal Medicine; ATTEND Internal Medicine
DX: F10.239 Alcohol dependence with withdrawal, unspecified (principal); D69.6 Thrombocytopenia, unspecified; E44.0 Moderate protein-calorie malnutrition; E83.42 Hypomagnesemia; Y90.0 Blood alcohol level of less than 20 mg/100 ml; E87.1 Hypo-osmolality and hyponatremia; F17.210 Nicotine dependence, cigarettes, uncomplicated; I25.10 Atherosclerotic heart disease of native coronary artery without angina pectoris; Z86.73 Personal history of transient ischemic attack (TIA), and cerebral infarction without residual deficits; G89.29 Other chronic pain; I25.2 Old myocardial infarction; R00.0 Tachycardia, unspecified; R74.0 Nonspecific elevation of levels of transaminase and lactic acid dehydrogenase [LDH]; Z68.24 Body mass index [BMI] 24.0-24.9, adult; T51.0X1A Toxic effect of ethanol, accidental (unintentional), initial encounter
CPT/HCPCS: 36415; 70450-TC; 71045-TC; 80048-TC; 80053-TC; 80076-TC; 81000-TC; 82746; 83540-TC; 83735-TC; 84100-TC; 84443-TC; 84484-TC; 85025-TC; 85730-TC; 87081-TC; 87086-TC; 97110-TC; 97530-TC; A4606; G0480; J1650; J2060; J2405; J3475; J7030; Z7610

== ENCOUNTER 2018-02-05 09:17 | Emergency (ER) | payer OTHER ==
[~2018-02-05] VITALS: Ht 182.9 cm; Wt 78.9 kg
[~2018-02-05 09:17] MED LIST changes: +ASPI-1169 PO; -coumadin
--- NOTE | 2018-02-05 09:30 | NUR ---
[id number] FROM HOME: GENERALIZED WEAKNESS, BACK/NECK PAIN S/P GLF @ 0800AM, PATIENT IS AFEBRILE. VSS
[2018-02-05] MEDS ORDERED: MORPHINE SULFATE INJ 2 MG/ML DISP.SYRIN ONE (09:38)
[2018-02-05] MEDS ORDERED: ONDANSETRON HCL/PF 4 MG/2 ML VIAL ONE (09:38)
[2018-02-05 09:39] LABS: BASOPHILS % (AUTO) 0.5 % (0.0-2.0); EOSINOPHILS % (AUTO) 0.4 % (0.0-6.0); HEMATOCRIT 45 % (39-51); HEMOGLOBIN 15.6 g/dL (13.5-17.5); LYMPHOCYTES # (AUTO) 0.7 /CMM (0.8-4.8); LYMPHOCYTES % (AUTO) 12.8 % (20.0-44.0); MEAN CORPUSCULAR HEMOGLOBIN 36 PG (26.0-33.0); MEAN CORPUSCULAR HGB CONC 35 g/dl (31.0-36.0); MEAN CORPUSCULAR VOLUME 102 fL (80-96); MONOCYTES # (AUTO) 0.4 /CMM (0.1-1.30); NEUTROPHILS # (AUTO) 4.7 /CMM (1.8-8.9); NEUTROPHILS % (AUTO) 79.3 % (43.0-81.0); PLATELET COUNT (AUTO) 72 /CMM (150-450); RDW COEFFICIENT OF VARIATION 12.9 (11.5-15.0); RED BLOOD CELL COUNT(AUTO) 4.38 MIL/uL (4.5-6.0); WHITE BLOOD COUNT (AUTO) 5.8 K/uL (4.3-11.0)
[2018-02-05 09:48] LABS: CARBON DIOXIDE 23 mmol/L (21-32); CHLORIDE 95 mmol/L (98-107); CREATININE 0.7 mg/dL (0.6-1.3); GLUCOSE 145 mg/dL (74-106); POTASSIUM 3.6 mmol/L (3.5-5.1); SODIUM SERUM 133 mmol/L (136-145); UREA NITROGEN, BLOOD 13 mg/dL (7-18)
[2018-02-05 09:52] LABS: INR 0.95 (0.85-1.15)
[2018-02-05 09:54] LABS: ALANINE AMINOTRANSFERASE 44 U/L (12-78); ALKALINE PHOSPHATASE 78 U/L (46-116); ASPARTATE AMINOTRANSFERASE 69 U/L (15-37); BILIRUBIN,DIRECT 0.7 mg/dL (0.0-0.2); BILIRUBIN,TOTAL 1.7 mg/dL (0.2-1.0); LIPASE 121 U/L (73-393); TOTAL PROTEIN, SERUM 9.1 g/dL (6.4-8.2)
[2018-02-05 09:56] LABS: TROPONIN I < 0.017 ng/mL (0.00-0.056)
[2018-02-05] MEDS ORDERED: MORPHINE SULFATE INJ 2 MG/ML DISP.SYRIN IV ONE (10:00)
[2018-02-05] MEDS ORDERED: ONDANSETRON HCL/PF 4 MG/2 ML VIAL IVP ONE (10:00)
[2018-02-05] MEDS ORDERED: IV NS 0.9% 1,000 ML BAG IV ONE (10:00)
--- NOTE | 2018-02-05 10:00 | NUR ---
PT BACK FROM CT
[2018-02-05 11:29] LABS: APPEARANCE,URINE Cloudy (CLEAR); BILIRUBIN,URINE MODERATE (NEGATIVE); BLOOD, URINE Trace-intact Ery/uL (NEGATIVE); COLOR,URINE Orange (YELLOW); KETONES,URINE 40 (NEGATIVE); LEUKOCYTE ESTERASE ,URINE Negative (NEGATIVE); NITRITE, URINE Positive (NEGATIVE); PROTEIN,URINE 100 mg/dl (NEGATIVE); UGLUCOSE Negative (NEGATIVE)
[2018-02-05 11:33] LABS: PH,URINE >8.5 (5.0-8.0)
[2018-02-05 11:39] LABS: BACTERIA,URINE Rare /HPF (None Seen); MUCUS,URINE Few /LPF (None Seen); SQUAMOUS EPITHELIAL CELL,UR Few /HPF (None Seen)
[2018-02-05 11:46] LABS: BAND % (MANUAL) 1 % (0.0-5.0); NEUTROPHILS % (MANUAL) 79 (42-76)
[2018-02-05 11:47] LABS: LYMPHOCYTES % (MANUAL) 16 % (16-48); MONOCYTES % (MANUAL) 4 % (0-11.0)
--- NOTE | 2018-02-05 11:54 | NUR ---
IV removed. Catheter intact and site benign. Pressure and 4x4 applied to site. No bleeding noted.
--- NOTE | 2018-02-05 11:55 | NUR ---
Pt ambulatory with steady gait
[2018-02-05 12:04] VITALS: BP 116/68
== END 2018-02-05 12:06 | disposition home or self-care (01) ==
LOC: ER 09:19
DX: S09.8XXA Other specified injuries of head, initial encounter (principal); R11.2 Nausea with vomiting, unspecified; M54.9 Dorsalgia, unspecified; R19.7 Diarrhea, unspecified; I25.2 Old myocardial infarction; F10.10 Alcohol abuse, uncomplicated; F17.200 Nicotine dependence, unspecified, uncomplicated; Z79.82 Long term (current) use of aspirin; W18.39XA Other fall on same level, initial encounter; Y93.89 Activity, other specified; Y92.89 Other specified places as the place of occurrence of the external cause; Y99.8 Other external cause status
CPT/HCPCS: 36415; 70450-TC; 71045-TC; 80048-TC; 80076-TC; 81000-TC; 83690-TC; 84484-TC; 85025-TC; 85730-TC; A4606; J2270; J2405; J7030; Z7610

== ENCOUNTER 2018-03-16 17:49 | Emergency (ER) | payer OTHER ==
[~2018-03-16] VITALS: Ht 182.9 cm; Wt 81.2 kg
[2018-03-16 18:52] VITALS: BP 136/82
== END 2018-03-16 19:00 | disposition left against medical advice (07) ==
LOC: ER 17:52
DX: S00.81XA Abrasion of other part of head, initial encounter (principal); S60.512A Abrasion of left hand, initial encounter; G89.29 Other chronic pain; I25.10 Atherosclerotic heart disease of native coronary artery without angina pectoris; F17.210 Nicotine dependence, cigarettes, uncomplicated; F10.10 Alcohol abuse, uncomplicated; Z60.2 Problems related to living alone; Z98.890 Other specified postprocedural states; I25.2 Old myocardial infarction; Z79.82 Long term (current) use of aspirin; Z86.73 Personal history of transient ischemic attack (TIA), and cerebral infarction without residual deficits; W18.39XA Other fall on same level, initial encounter; Y93.01 Activity, walking, marching and hiking; Y92.410 Unspecified street and highway as the place of occurrence of the external cause; Y99.8 Other external cause status
CPT/HCPCS: 99283; A4606; A6402; A6403; Z7610

== ENCOUNTER 2018-10-30 01:07 | Emergency (ER) | payer MEDICARE, MEDICAID ==
[~2018-10-30] VITALS: Ht 177.8 cm; Wt 79.4 kg
--- NOTE | 2018-10-30 01:10 | NUR ---
PT BIBRA60 FROM HOME AFTER GLF EARLIER TODAY. PT STATES HE WAS DRINKING EARLIER TODAY. PT DENIES HEAD TRAUMA OR LOC. NOT SKIN TEAR RIGHT FOREARM. PT IS AAOX3. RESPIRATIONS EVEN AND UNLABORED. VITAL SIGNS STABLE. WILL CONTINUE TO MONITOR
[2018-10-30] MEDS ORDERED: IV NS 0.9% 1,000 ML BAG IV ONE (01:30)
[2018-10-30] MEDS ORDERED: TDAP [DIPH/PERTUSSIS/TET] 0.5 ML VIAL IM ONE ×2 (01:30)
[2018-10-30] MEDS ORDERED: BACI/NEOM/POLY B OINT PKT 1 UDPKT PACKET TP ONE (01:30)
--- NOTE | 2018-10-30 02:11 | NUR ---
RADIOLOGY AT BEDSIDE FOR XRAY
--- NOTE | 2018-10-30 02:28 | NUR ---
PT BROUGHT BY RADIOLOGY FOR CT
[2018-10-30 03:02] LABS: EOSINOPHILS % (AUTO) 1.4 % (0.0-6.0); HEMATOCRIT 41 % (39-51); HEMOGLOBIN 14.3 g/dL (13.5-17.5); LYMPHOCYTES # (AUTO) 1.7 /CMM (0.8-4.8); LYMPHOCYTES % (AUTO) 46.8 % (20.0-44.0); MEAN CORPUSCULAR HGB CONC 35 g/dl (31.0-36.0); MEAN CORPUSCULAR VOLUME 108 fL (80-96); MONOCYTES # (AUTO) 0.4 /CMM (0.1-1.30); MONOCYTES % (AUTO) 11.2 % (2.0-12.0); NEUTROPHILS # (AUTO) 1.4 /CMM (1.8-8.9); NEUTROPHILS % (AUTO) 39.6 % (43.0-81.0); RED BLOOD CELL COUNT(AUTO) 3.77 MIL/uL (4.5-6.0); WHITE BLOOD COUNT (AUTO) 3.6 K/uL (4.3-11.0)
[2018-10-30 03:12] LABS: CALCIUM, SERUM 8.9 mg/dL (8.5-10.1); CREATININE 0.6 mg/dL (0.6-1.3); PLATELET COUNT (AUTO) 59 /CMM (150-450); POTASSIUM 3.5 mmol/L (3.5-5.1)
[2018-10-30] MEDS ORDERED: Magnesium 1GM/D5W 100ML PREMIX 100 ML IV ONE (03:44)
[2018-10-30] MEDS ORDERED: Magnesium 1GM/D5W 100ML PREMIX 100 ML IV SCH (04:00)
[2018-10-30 04:46] LABS: EOSINOPHILS % (MANUAL) 1 % (0-4); LYMPHOCYTES % (MANUAL) 49 % (16-48); MONOCYTES % (MANUAL) 3 % (0-11.0); NEUTROPHILS % (MANUAL) 47 (42-76)
--- NOTE | 2018-10-30 05:16 | NUR ---
Patient discharged to home in stable condition. Written and verbal after care instructions given. Patient verbalizes understanding of instruction. IV removed. Catheter intact and site benign. Pressure and 4x4 applied to site. No bleeding noted.
[2018-10-30 05:18] VITALS: BP 102/61
== END 2018-10-30 05:18 | disposition home or self-care (01) ==
LOC: ER 01:08
DX: S51.811A Laceration without foreign body of right forearm, initial encounter (principal); E83.42 Hypomagnesemia; D72.819 Decreased white blood cell count, unspecified; D69.6 Thrombocytopenia, unspecified; G89.29 Other chronic pain; M54.5 Low back pain; F10.20 Alcohol dependence, uncomplicated; R94.31 Abnormal electrocardiogram [ECG] [EKG]; F17.210 Nicotine dependence, cigarettes, uncomplicated; I25.10 Atherosclerotic heart disease of native coronary artery without angina pectoris; I25.2 Old myocardial infarction; Y90.9 Presence of alcohol in blood, level not specified; Z86.73 Personal history of transient ischemic attack (TIA), and cerebral infarction without residual deficits; Z98.890 Other specified postprocedural states; Z60.2 Problems related to living alone; Z79.82 Long term (current) use of aspirin; W18.39XA Other fall on same level, initial encounter; Y93.89 Activity, other specified; Y92.89 Other specified places as the place of occurrence of the external cause; Y99.8 Other external cause status
CPT/HCPCS: 36415; 70450; 71045; 73090; 80048; 83735; 85025; 90471; 90715; 93005; 96365; 99284; A4606; J3475; Z7610

== ENCOUNTER 2018-11-02 09:38 | Inpatient (IN) | payer MEDICARE, MEDICAID ==
[~2018-11-02] VITALS: Ht 182.9 cm; Wt 74.5 kg
[2018-11-02] MEDS ORDERED: ONDANSETRON HCL/PF 4 MG/2 ML VIAL IVP ONE (10:00)
[2018-11-02] MEDS ORDERED: IV NS 0.9% 1,000 ML BAG IV ONE (10:00)
--- NOTE | 2018-11-02 10:28 | NUR ---
PT BROUGHT IN FROM HOME BY PARAMEDICS FOR NAUSEA LABS DRAWN AND TAKEN TO CT SCAN.
[2018-11-02 10:40] LABS: BASOPHILS % (AUTO) 0.2 % (0.0-2.0); EOSINOPHILS % (AUTO) 0.1 % (0.0-6.0); HEMATOCRIT 40 % (39-51); HEMOGLOBIN 13.8 g/dL (13.5-17.5); LYMPHOCYTES # (AUTO) 0.6 /CMM (0.8-4.8); LYMPHOCYTES % (AUTO) 13.2 % (20.0-44.0); MEAN CORPUSCULAR HGB CONC 34 g/dl (31.0-36.0); MEAN CORPUSCULAR VOLUME 109 fL (80-96); MONOCYTES # (AUTO) 0.4 /CMM (0.1-1.30); MONOCYTES % (AUTO) 9.2 % (2.0-12.0); NEUTROPHILS # (AUTO) 3.5 /CMM (1.8-8.9); NEUTROPHILS % (AUTO) 77.3 % (43.0-81.0); PLATELET COUNT (AUTO) 78 /CMM (150-450); WHITE BLOOD COUNT (AUTO) 4.5 K/uL (4.3-11.0)
[2018-11-02 10:48] LABS: CALCIUM, SERUM 9.4 mg/dL (8.5-10.1); CARBON DIOXIDE 17 mmol/L (21-32); CHLORIDE 99 mmol/L (98-107); GLUCOSE 134 mg/dL (74-106); POTASSIUM 3.1 mmol/L (3.5-5.1); SODIUM SERUM 138 mmol/L (136-145); UREA NITROGEN, BLOOD 9 mg/dL (7-18)
[2018-11-02 10:49] LABS: SERUM AMMONIA 18 umol/L (11-32)
[2018-11-02 10:54] LABS: ALANINE AMINOTRANSFERASE 20 U/L (12-78); ALBUMIN 3.2 g/dL (3.4-5.0); ALCOHOL, BLOOD < 3 mg/dL (0-0); ALKALINE PHOSPHATASE 67 U/L (46-116); ASPARTATE AMINOTRANSFERASE 43 U/L (15-37); BILIRUBIN,DIRECT 0.9 mg/dL (0.0-0.2); BILIRUBIN,TOTAL 1.8 mg/dL (0.2-1.0); SALICYLATE 7.7 mg/dL (2.8-20.0); TOTAL PROTEIN, SERUM 6.9 g/dL (6.4-8.2)
[2018-11-02 11:01] LABS: THYROID STIMULATING HORMONE 1.012 uIU/mL (0.358-3.74)
[2018-11-02] MEDS ORDERED: ONDANSETRON HCL/PF 4 MG/2 ML VIAL ONE (11:07)
[2018-11-02 11:32] LABS: BAND % (MANUAL) 4 % (0.0-5.0); EOSINOPHILS % (MANUAL) 1 % (0-4); LYMPHOCYTES % (MANUAL) 13 % (16-48); MONOCYTES % (MANUAL) 10 % (0-11.0); NEUTROPHILS % (MANUAL) 72 (42-76)
--- NOTE | 2018-11-02 11:32 | NUR ---
PT UNABLE TO GIVEN URINE
--- NOTE | 2018-11-02 12:05 | NUR ---
PT GIVEN APPLE JUICE NAUSEA SUBSIDED PENDING ADMISSION
--- NOTE | 2018-11-02 12:46 | NUR ---
PT IS ASSIGNED TO MED SURG RM#: 311-2, DX: UNSTEADY GAIT / HYPERBILRUBINEMIA, AND ACCEPTING: ROGER MCCRACKEN NP
--- NOTE | 2018-11-02 12:55 | NUR ---
RN REPORT GIVEN TO DAVE CORTES RN PT ADMITTED TO ROOM 311-2 BY ADMITTING MD DURAN.
[2018-11-02 14:15] VITALS: BP 147/93
[2018-11-02] MEDS ORDERED: POTASSIUM CHLORIDE 20 MEQ TAB.PRT.SR PO ONE (14:30)
[2018-11-02] MEDS ORDERED: MAG HYDROX/AL HYDROX/SIMETH 30 ML UDC PO PRN (14:30)
[2018-11-02] MEDS ORDERED: MAGNESIUM HYDROXIDE 30 ML UDC PO PRN (14:30)
[2018-11-02] MEDS ORDERED: ACETAMINOPHEN 325 MG TABLET PO PRN (14:30)
[2018-11-02] MEDS: IV NS 0.9% 1,000 ML IV PRN (15:43)
[2018-11-02 16:00] VITALS: BP 107/73
[2018-11-02] MEDS: HYDROCODONE/APAP 10/325MG 1 EA TABLET PO PRN ×2 (16:22→23:40)
--- NOTE | 2018-11-02 18:17 | NUR ---
MS RN NOTES PATIENT REMAINS AWAKE IN BED AND WATCHING TV. NO DISTRESS NOTED. NO C/O PAIN OR DISCOMFORT. ALL DUE MEDS GIVEN ORDERED WITH NO ASE NOTED. PERIPHERAL IV INTACT/PATENT. ALL BELONGINGS KEPT NEAR BEDSIDE. CALL LIGHT WITHIN REACH. BED IN LOW LOCK SETTING.
--- NOTE | 2018-11-02 19:05 | NUR ---
MS RN INITIAL NOTES PATIENT RECEIVED AWAKE IN BED, WATCHING TV. NO DISTRESS NOTED. NO C/O PAIN OR DISCOMFORT OF THIS TIME. PERIPHERAL IV INTACT/PATENT, INFUSING AT 75ML/HR. CALL SALGADO WITHIN REACH. BED IN LOW, LOCKED POSITION. PATIENT STABLE ENDORSED BY THE MORNING RN. WILL CONTINUE TO MONITOR ACCORDINGLY.
[2018-11-02] MEDS: HYDROCODONE/APAP 5/325MG 1 EACH TABLET PO PRN (19:57)
--- NOTE | 2018-11-02 19:59 | NUR ---
RN NOTES PATIENT C/O BACK PAIN, 05/25. NORCO 5-325 GIVEN ORDERED
[2018-11-02 20:00] VITALS: BP 103/70
[2018-11-02] MEDS: ZOLPIDEM TARTRATE 5 MG TABLET PO PRN (21:02)
--- NOTE | 2018-11-02 21:03 | NUR ---
RN NOTES PATIENT STATED HE DOESN'T SLEEP WELL. REQUESTED FOR A SLEEPING TABLET. AMBIEN 5MG GIVEN ORDERED
--- NOTE | 2018-11-02 23:40 | NUR ---
RN NOTES V/S CHECKED: BP- 128/86, HR- 95, SPO2-99%
[2018-11-03] MEDS: ONDANSETRON HCL/PF 4 MG/2 ML VIAL IVP PRN ×2 (03:12→11:27)
--- NOTE | 2018-11-03 03:16 | NUR ---
RN NOTES PATIENT C/O NAUSEA AND VOMITING. ONDANSETRON 4MG GIVEN ORDERED
[2018-11-03] MEDS: HYDROCODONE/APAP 5/325MG 1 EACH TABLET PO PRN (04:07)
--- NOTE | 2018-11-03 04:11 | NUR ---
RN NOTES PATIENT C/O HEADACHE AND BACKACHE, 05/25. NORCO 5-325 GIVEN ORDERED
[2018-11-03] MEDS: HYDROCODONE/APAP 10/325MG 1 EA TABLET PO PRN ×4 (07:23→22:16)
[2018-11-03] MEDS: PANTOPRAZOLE 40 MG TABLET.DR PO SCH (07:24)
--- NOTE | 2018-11-03 07:25 | NUR ---
MS RN CLOSING NOTES PATIENT IN BED, SLEEPING BUT EASILY AROUSABLEV. NO DISTRESS NOTED. NO C/O PAIN OR DISCOMFORT. ALL DUE MEDS GIVEN ORDERED. PERIPHERAL IV INFUSING AT 75ML/HR. ALL NEEDS ATTENDED TO. ALL DUE MEDICATIONS GIVEN ORDERED. CALL LIGHT WITHIN REACH. BED IN LOW LOCKED POSITION. ENDORSED RICARDO TO AM RN
--- NOTE | 2018-11-03 07:30 | NUR ---
M/S RN - Assessment Patient awake, A/O x 3, c/o generalized pain WA=8/10, [place] 10/325 mg given, no apparent distress noted, stable on room air. IVF NS at 75 ml/hr infusing well on the LFA with no signs of infiltration. Skin noted with sacral bruise, left big toe scab, RFA skin tear and multiple scabs, right hand ecchymosis, BUE ecchymosis, BLE skin discoloration. Patient independent with bed mobility. Fall precautions maintained. Patient educated on plan of care. Will continue with current medical management.
[2018-11-03 08:00] VITALS: BP 131/75
[2018-11-03] MEDS: FOLIC ACID 1 MG TABLET PO SCH (08:18)
[2018-11-03] MEDS: IV NS 0.9% 1,000 ML IV PRN (08:19)
[2018-11-03] MEDS ORDERED: THIAMINE HCL 100 MG TABLET PO SCH (09:00)
[2018-11-03 10:43] LABS: CREATININE 0.8 mg/dL (0.6-1.3); MAGNESIUM 1.3 mg/dL (1.8-2.4); PHOSPHORUS 1.3 mg/dL (2.5-4.9)
[2018-11-03 10:49] LABS: BASOPHILS % (AUTO) 0.2 % (0.0-2.0); EOSINOPHILS % (AUTO) 0.7 % (0.0-6.0); HEMATOCRIT 34 % (39-51); LYMPHOCYTES # (AUTO) 0.7 /CMM (0.8-4.8); LYMPHOCYTES % (AUTO) 21.9 % (20.0-44.0); MEAN CORPUSCULAR HGB CONC 36 g/dl (31.0-36.0); MEAN CORPUSCULAR VOLUME 106 fL (80-96); MONOCYTES # (AUTO) 0.4 /CMM (0.1-1.30); MONOCYTES % (AUTO) 11.6 % (2.0-12.0); NEUTROPHILS # (AUTO) 2.2 /CMM (1.8-8.9); NEUTROPHILS % (AUTO) 65.6 % (43.0-81.0); PLATELET COUNT (AUTO) 63 /CMM (150-450); POTASSIUM 2.8 mmol/L (3.5-5.1); RED BLOOD CELL COUNT(AUTO) 3.18 MIL/uL (4.5-6.0); WHITE BLOOD COUNT (AUTO) 3.3 K/uL (4.3-11.0)
[2018-11-03] MEDS ORDERED: POTASSIUM CHLORIDE 20 MEQ POWDER PACKET PEG ONE (11:00)
--- NOTE | 2018-11-03 11:00 | NUR ---
Social service consult requested by DAVID Cohen for alcohol abuse. Pt. is a 63 year old male who was admitted to [facility] for unsteady gait. SW met with pt. bedside. Pt. is alert and oriented x 4. Pt. hair is disheveled. Pt's mood was congruent. Pt. has bruises on both his arms from falling at home. Pt. resides alone at [address] [place] [address]. [place] [address]. Pt's emergency contact is Maryellen Choudhary . Pt. states he has been falling frequently at home and out on the streets. CHEN is familiar with pt. from previous admissions. Pt. denies drinking alcohol currently and states he has been sober for the past three to four months. Pt. was a vodka drinker and use to drink 1/5th of vodka daily. Pt. smokes 1/2 pack of cigarettes per day. Pt. denies drug and marijuana use. Pt. has a diagnosis of Depression and anxiety and is currently not on any medications. Pt. denies suicidal/homicidal ideations and visual/homicidal ideations at this time. Pt. to be discharged to a fci once medically cleared. No other social service needs are requested at this time.
[2018-11-03] MEDS: Magnesium 1GM/D5W 100ML PREMIX 100 ML IV SCH ×2 (11:15→12:05)
[2018-11-03] MEDS: POTASSIUM PHOSPHATE MM 7.5 MMOL in IV D5W 100 ML IV SCH ×2 (11:35→15:05)
[2018-11-03 16:00] VITALS: BP 99/56
--- NOTE | 2018-11-03 17:36 | NUR ---
M/S RN - Closing Notes Patient alert and oriented throughout the shift, in no acute distress, remain afebrile, pain controlled with [place] 10/325 mg. Potassium, Magnesium and Phos repleted. MRI brain w/o contrast done, results pending. Patient signed consent for RFA wound debridement. All needs attended and met. Will continue with current medical management.
--- NOTE | 2018-11-03 19:10 | NUR ---
RN NOTES RECEIVED PT AWAKE, ALERT AND ORIENTED X3. DENIES PAIN, NAUSEA AND VOMITING AT THIS TIME. DRESSING ON RIGHT FOREARM CLEAN, DRY AND INTACT. IV ACCESS ON LEFT FOREARM PATENT AND INTACT WITH ONGOING IVF INFUSING WELL. PLAN OF CARE DISCUSSED WITH THE PATIENT AND VERBALIZED UNDERSTANDING. WILL CONTINUE TO MONITOR PT.
[2018-11-03 20:00] VITALS: BP 111/76
[2018-11-03 22:00] VITALS: BP 111/76
[2018-11-03] MEDS: ZOLPIDEM TARTRATE 5 MG TABLET PO PRN (23:26)
[2018-11-04] MEDS: IV NS 0.9% 1,000 ML IV PRN (06:15)
[2018-11-04] MEDS: HYDROCODONE/APAP 10/325MG 1 EA TABLET PO PRN ×3 (06:20→20:07)
--- NOTE | 2018-11-04 07:23 | NUR ---
M/S RN - Assessment Patient awake, A/O x 3, denies pain at this time, no apparent distress noted, stable on room air. Patient for RFA wound debridement today, consent signed. Patient independent with bed mobility. Fall precautions maintained. Discussed plan of care with patient and in agreement. Will continue with current medical management.
--- NOTE | 2018-11-04 07:25 | NUR ---
RN NOTES PATIENT SLEPT WELL OVERNIGHT, VITAL SIGNS STABLE, AFEBRILE. KEPT PAIN AT TOLERABLE LEVEL. IV ACCESS INFILTRATED, PATIENT WANTS TO INSERT NEW IV ACCESS LATER IN THE MORNING.FALL PRECAUTION OBSERVED. ALL NEEDS ATTENDED. ENDORSED TO MORNING RN FOR CONTINUITY OF CARE. ENDORSED TO MORNING RN FOR CONTINUITY OF CARE.
[2018-11-04] MEDS: PANTOPRAZOLE 40 MG TABLET.DR PO SCH (07:29)
[2018-11-04 08:00] VITALS: BP 112/68
[2018-11-04] MEDS ORDERED: Thiamine 100 MG in IV D5W 50 ML IV SCH (09:00)
[2018-11-04] MEDS: FOLIC ACID 1 MG TABLET PO SCH (09:07)
--- NOTE | 2018-11-04 10:30 | NUR ---
M/S RN - Debridement RFA wound debridement done at bedside by Dr. Surya Carter. Patient tolerated procedure well.
[2018-11-04 16:00] VITALS: BP 109/62
[2018-11-04] MEDS: ENSURE ENLIVE CHOC 237 ML CAN PO SCH (16:47)
--- NOTE | 2018-11-04 17:40 | NUR ---
M/S RN - Closing Notes Patient states feeling better, in no acute distress, remain afebrile, generalized body pain controlled with [place] 10/325 mg q4hrs PRN. Saline lock on the left hand is patent, intact, with no signs of infiltration. Anticipate discharge to SNF if condition remain stable. Will continue with current medical management.
--- NOTE | 2018-11-04 19:05 | NUR ---
RN NOTES RECEIVED PATIENT AWAKE, HOB ELEVATED, ON ROOM AIR AND TOLERATED WELL. PAIN AT TOLERABLE LEVEL AT THIS TIME, /. DENIES NAUSEA AND VOMITING. IV ACCESS ON LEFT FOREARM PATENT AND INTACT. SAFETY MEASURES IN PLACE. KEPT COMFORTABLE AND ATTENDED. WILL CONTINUE TO MONITOR PATIENT.
[2018-11-04 20:00] VITALS: BP 121/70
--- NOTE | 2018-11-04 20:07 | NUR ---
RN NOTES PATIENT COMPLAINS OF 7/10 PAIN ON HIS LOWER BACK. NORCO 10/325 MG TAB GIVEN PO AND TOLERATED WELL. WILL CONTINUE TO MONITOR PT.
--- NOTE | 2018-11-04 20:43 | NUR ---
RN NOTES PATIENT COMPLAINS OF ABDOMINAL DISCOMFORT MAALOX GIVEN. WILL CONTINUE TO MONITOR.
[2018-11-04 22:00] VITALS: BP 121/70
--- NOTE | 2018-11-05 06:14 | NUR ---
RN NOTES PATIENT SLEPT WELL OVERNIGHT, VITAL SIGNS STABLE, AFEBRILE. PAIN ON LOWER BACK MANAGED WITH CURRENT REGIMEN. DENIES PAIN ON RIGHT FOREARM WOUND, DRESSING CLEAN, DRY AND INTACT. DENIES NAUSEA AND VOMITING. VOIDING WELL. FALL PRECAUTION OBSERVED. ALL NEEDS MET. WILL CONTINUE TO MONITOR.
--- NOTE | 2018-11-05 07:28 | NUR ---
MS RN NOTES PATIENT RECEIVED RESTING INSIDE ROOM. SLEEPING, EASILY AROUSABLE THROUGH VERBAL AND TACTILE STIMULI. BREATHING EVEN AND UNLABORED. NO SOB OR ACUTE DISTRESS. DENIES ANY PAIN OR DISCOMFORT. PATIENT ALERT AND ORIENTED X 3, RESPONDS TO VERBAL AND TACTILE STIMULI. PATIENT CALM AND RELAXED. WILL CONTINUE TO MONITOR. BED LOCKED AND IN LOW POSITION. BILATERAL UPPER SIDE RAILS UP AND LOCKED. BED ALARM ON. CALL LIGHT WITHIN EASY REACH
[2018-11-05 08:00] VITALS: BP 92/55
[2018-11-05] MEDS: HYDROCODONE/APAP 10/325MG 1 EA TABLET PO PRN (08:09)
[2018-11-05] MEDS: PANTOPRAZOLE 40 MG TABLET.DR PO SCH (08:09)
[2018-11-05] MEDS: FOLIC ACID 1 MG TABLET PO SCH (08:09)
[2018-11-05] MEDS ORDERED: THIAMINE HCL 100 MG TABLET PO SCH (09:00)
[2018-11-05 11:06] LABS: BASOPHILS % (AUTO) 0.6 % (0.0-2.0); EOSINOPHILS % (AUTO) 1.6 % (0.0-6.0); HEMATOCRIT 30 % (39-51); LYMPHOCYTES # (AUTO) 0.7 /CMM (0.8-4.8); LYMPHOCYTES % (AUTO) 25.4 % (20.0-44.0); MEAN CORPUSCULAR HGB CONC 36 g/dl (31.0-36.0); MEAN CORPUSCULAR VOLUME 107 fL (80-96); MONOCYTES # (AUTO) 0.4 /CMM (0.1-1.30); MONOCYTES % (AUTO) 15.3 % (2.0-12.0); NEUTROPHILS # (AUTO) 1.5 /CMM (1.8-8.9); NEUTROPHILS % (AUTO) 57.1 % (43.0-81.0); PLATELET COUNT (AUTO) 83 /CMM (150-450); RED BLOOD CELL COUNT(AUTO) 2.85 MIL/uL (4.5-6.0); WHITE BLOOD COUNT (AUTO) 2.7 K/uL (4.3-11.0)
[2018-11-05 11:31] LABS: CALCIUM, SERUM 8.4 mg/dL (8.5-10.1); CREATININE 0.6 mg/dL (0.6-1.3); MAGNESIUM 1.6 mg/dL (1.8-2.4); PHOSPHORUS 2.1 mg/dL (2.5-4.9)
[2018-11-05 11:48] LABS: BAND % (MANUAL) 1 % (0.0-5.0); EOSINOPHILS % (MANUAL) 2 % (0-4); LYMPHOCYTES % (MANUAL) 29 % (16-48); MONOCYTES % (MANUAL) 16 % (0-11.0); NEUTROPHILS % (MANUAL) 52 (42-76)
[2018-11-05] MEDS: ENSURE ENLIVE CHOC 237 ML CAN PO SCH (12:15)
--- NOTE | 2018-11-05 13:17 | NUR ---
MS RN NOTES PATIENT WITH ORDER FROM ROGER MCCRACKEN CUT OFF SAW TENDER METAL FOR DISCHARGE. PATIENT AWARE AND VERBALIZED UNDERSTANDING. RECEIVED CALL FROM CASE MANAGEMENT THAT PATIENT WILL BE PICKED UP BY AMBULANCE AT 1500, TO TRANSFER TO [facility]. PLACED CALL TO [facility] ([phone]) AND GAVE REPORT TO SRINIVAS EMERY.
[2018-11-05] MEDS ORDERED: POTASSIUM CHLORIDE 20 MEQ TAB.PRT.SR PO ONE (13:30)
--- NOTE | 2018-11-05 13:33 | NUR ---
MS RN NOTES LAB RESULTS RECEIVED AND RELAYED TO ROGER MCCRACKEN NP FOR POTASSIUM 3.0, PHOSPHORUS 2.1, MAGNESIUM 1.6. WITH NEW ORDER FOR POTASSIUM CHLORIDE 60 MEQ PO X 1 DOSE. ORDER NOTED AND CARRIED OUT. PHARMACY AWARE. WILL CONTINUE TO MONITOR
[2018-11-05] MEDS ORDERED: K PHOS NEUTRAL 250 MG TABLET PO ONE (15:00)
--- NOTE | 2018-11-05 16:20 | NUR ---
MS RN NOTES PATIENT FOR DISCHARGE TODAY. TO [facility]GE [facility]. DISCHARGE INSTRUCTIONS AND EDUCATION GIVEN AND PATIENT VERBALIZED UNDERSTANDING. ALL BELONGINGS COMPLETE ON DISCHARGE, NO REPORT OF MISSING INVENTORY. IV REMOVED WITH MINIMAL BLEEDING NOTED, PRESSURE DRESSING PLACED ON SITE. PATIENT LEFT UNIT AT 1615 VIA GURNEY IN STABLE CONDITION. BREATHING EVEN AND UNLABORED. NO ACUTE DISTRESS. NO NEW SKIN BREAKDOWN NOTED. DENIES ANY PAIN OR DISCOMFORT. MD AWARE OF DISCHARGE
== END 2018-11-05 16:10 | DRG 623 ==
LOC: ER 09:40 → MED 13:00
PROVIDERS: ADMIT Nurse Practitioner Acute Care; ATTEND Nurse Practitioner Acute Care
PROC: 0JBG0ZZ Excision of Right Lower Arm Subcutaneous Tissue and Fascia, Open Approach (ICD-10-PCS; principal; 2018-11-04)
DX: E86.0 Dehydration (principal); E51.2 Wernicke's encephalopathy; E44.0 Moderate protein-calorie malnutrition; R26.9 Unspecified abnormalities of gait and mobility; E87.6 Hypokalemia; K80.20 Calculus of gallbladder without cholecystitis without obstruction; K59.00 Constipation, unspecified; R29.6 Repeated falls; W18.39XA Other fall on same level, initial encounter; Y92.480 Sidewalk as the place of occurrence of the external cause; L85.3 Xerosis cutis; S51.801A Unspecified open wound of right forearm, initial encounter; F17.210 Nicotine dependence, cigarettes, uncomplicated; F10.20 Alcohol dependence, uncomplicated; D53.9 Nutritional anemia, unspecified; E80.6 Other disorders of bilirubin metabolism; Z86.73 Personal history of transient ischemic attack (TIA), and cerebral infarction without residual deficits; F03.90 Unspecified dementia, unspecified severity, without behavioral disturbance, psychotic disturbance, mood disturbance, and anxiety; E83.42 Hypomagnesemia; R16.0 Hepatomegaly, not elsewhere classified; K76.1 Chronic passive congestion of liver; R53.81 Other malaise
CPT/HCPCS: 36415; 70450-TC; 70551-TC; 71045-TC; 73090-TC; 76705-TC; 80048-TC; 80061-TC; 80076-TC; 82140-TC; 82962-TC; 83605-TC; 83735-TC; 83921; 84100-TC; 84425; 84443-TC; 84484-TC; 85025-TC; 85730-TC; 87040-TC; 87081-TC; 97116-TC; 97530-TC; A4606; A6402; A6403; G0378; G0480; J2405; J3411; J3475; J3490; J7030; J7060; Z7610

== ENCOUNTER 2018-12-05 01:06 | Emergency (ER) | payer MEDICARE, MEDICAID ==
[~2018-12-05] VITALS: Ht 182.9 cm; Wt 67.6 kg
--- NOTE | 2018-12-05 02:00 | NUR ---
PT BIBRA C/O DIZZINESS THAT HE HAS HAD FOR A COUPLE MONTHS BUT THE LAST 2 DAYS HAS GOTTEN WORSE. PT [id number]. RESPIRATIONS ARE EVEN AND UNLABORED. PT PUT ON THE MONITOR AND AWAITING EVAL FROM ER MD.
--- NOTE | 2018-12-05 02:15 | NUR ---
Patient is resting comfortably in bed with eyes closed. Easily aroused. VSS
--- NOTE | 2018-12-05 03:00 | NUR ---
PROPERTY PRESERVATION SPECIALIST AT BEDSIDE FOR LAB DRAW.
[2018-12-05 03:12] LABS: BASOPHILS % (AUTO) 0.8 % (0.0-2.0); LYMPHOCYTES # (AUTO) 1.6 /CMM (0.8-4.8); MONOCYTES # (AUTO) 0.4 /CMM (0.1-1.30); NEUTROPHILS # (AUTO) 1.1 /CMM (1.8-8.9); PLATELET COUNT (AUTO) 76 /CMM (150-450); WHITE BLOOD COUNT (AUTO) 3.2 K/uL (4.3-11.0)
--- NOTE | 2018-12-05 03:12 | NUR ---
URINE SAMPLE OBTAINED AND SENT TO LAB.
[2018-12-05 03:16] LABS: HEMATOCRIT 39 % (39-51); HEMOGLOBIN 13.6 g/dL (13.5-17.5); LYMPHOCYTES % (AUTO) 51.1 % (20.0-44.0); MEAN CORPUSCULAR HGB CONC 35 g/dl (31.0-36.0); MEAN CORPUSCULAR VOLUME 106 fL (80-96); MONOCYTES % (AUTO) 11.9 % (2.0-12.0); NEUTROPHILS % (AUTO) 34.2 % (43.0-81.0); RED BLOOD CELL COUNT(AUTO) 3.66 MIL/uL (4.5-6.0)
[2018-12-05 03:22] LABS: CALCIUM, SERUM 8.5 mg/dL (8.5-10.1); CARBON DIOXIDE 26 mmol/L (21-32); CHLORIDE 101 mmol/L (98-107); CREATININE 0.7 mg/dL (0.6-1.3); GLUCOSE 78 mg/dL (74-106); POTASSIUM 3.2 mmol/L (3.5-5.1); SODIUM SERUM 140 mmol/L (136-145); UREA NITROGEN, BLOOD 11 mg/dL (7-18)
[2018-12-05 03:22] LABS: APPEARANCE,URINE CLEAR (CLEAR); BILIRUBIN,URINE 2+ (NEGATIVE); BLOOD, URINE NEGATIVE Ery/uL (NEGATIVE); COLOR,URINE DARK YELLO (YELLOW); KETONES,URINE 2+ (NEGATIVE); LEUKOCYTE ESTERASE ,URINE NEGATIVE (NEGATIVE); NITRITE, URINE NEGATIVE (NEGATIVE); PH,URINE 6.5 (5.0-8.0); PROTEIN,URINE TRACE mg/dl (NEGATIVE); UGLUCOSE TRACE mg/dL (NEGATIVE); UROBILINOGEN,URINE >=8.0 EU/dL (0.2)
--- NOTE | 2018-12-05 03:24 | NUR ---
PT TAKEN TO CT.
[2018-12-05 03:28] LABS: ALANINE AMINOTRANSFERASE 23 U/L (12-78); ALBUMIN 3.1 g/dL (3.4-5.0); ALKALINE PHOSPHATASE 76 U/L (46-116); ASPARTATE AMINOTRANSFERASE 67 U/L (15-37); BILIRUBIN,DIRECT 0.4 mg/dL (0.0-0.2); BILIRUBIN,TOTAL 0.8 mg/dL (0.2-1.0); TOTAL PROTEIN, SERUM 6.5 g/dL (6.4-8.2)
[2018-12-05 03:33] LABS: BACTERIA,URINE Few /HPF (None Seen); CALCIUM OXALATE CRYSTALS,UR Few /HPF (None Seen); RBC,URINE 0-2 /HPF (0-2); SQUAMOUS EPITHELIAL CELL,UR Rare /HPF (None Seen); WBC,URINE 0-2 /HPF (0-3)
[2018-12-05 03:35] LABS: MAGNESIUM 1.5 mg/dL (1.8-2.4)
[2018-12-05 03:36] LABS: LYMPHOCYTES % (MANUAL) 53 % (16-48); NEUTROPHILS % (MANUAL) 36 (42-76)
[2018-12-05 03:37] LABS: MONOCYTES % (MANUAL) 11 % (0-11.0)
--- NOTE | 2018-12-05 03:45 | NUR ---
Patient is resting comfortably in bed with eyes closed. Easily aroused. VSS
--- NOTE | 2018-12-05 05:34 | NUR ---
RPatient is resting comfortably in bed with eyes closed. Easily aroused. VSS
[2018-12-05] MEDS ORDERED: Magnesium 1 GM/2 ML VIAL IV ONE ×2 (06:30→07:30)
[2018-12-05] MEDS ORDERED: POTASSIUM CHLORIDE 20 MEQ TAB.PRT.SR PO ONE ×2 (06:30→06:45)
[2018-12-05] MEDS ORDERED: Magnesium 1GM/D5W 100ML PREMIX 100 ML IV ONE (06:45)
[2018-12-05] MEDS ORDERED: IV NS 0.9% 1,000 ML BAG IV ONE (07:00)
--- NOTE | 2018-12-05 07:30 | NUR ---
REPORT GIVEN TO OLEGARIO EMERY FOR RICARDO.
--- NOTE | 2018-12-05 07:31 | NUR ---
REPORT RECEIVED FROM OLENA EMERY
--- NOTE | 2018-12-05 10:35 | NUR ---
OFFERED WALKER AND EXPLAINED THE BENEFITS. PT REFUSED TO TAKE IT.
--- NOTE | 2018-12-05 10:36 | NUR ---
IV removed. Catheter intact and site benign. Pressure and 4x4 applied to site. No bleeding noted.Patient discharged to home in stable condition. Written and verbal after care instructions given. Patient verbalizes understanding of instruction.
[2018-12-05 10:50] VITALS: BP 143/100
== END 2018-12-05 10:51 | disposition home or self-care (01) ==
LOC: ER 01:08
DX: R26.9 Unspecified abnormalities of gait and mobility (principal); F10.10 Alcohol abuse, uncomplicated; E87.6 Hypokalemia; E83.42 Hypomagnesemia; I25.2 Old myocardial infarction; F17.210 Nicotine dependence, cigarettes, uncomplicated; Z98.890 Other specified postprocedural states; Z60.2 Problems related to living alone; Z79.82 Long term (current) use of aspirin; Z79.899 Other long term (current) drug therapy
CPT/HCPCS: 36415; 70450-TC; 71045-TC; 80048-TC; 80076-TC; 80305; 81000-TC; 83735-TC; 83880; 84484-TC; 85025-TC; 85730-TC; G0480; J3475; J7030